=== PATIENT | male | born 1960 | race Caucasian/White ===

== ENCOUNTER → 2018-06-01 09:32 | Outpatient (CLI) | payer OTHER, SELFPAY ==
[2018-06-01 10:08] LABS: Add Manual Diff / Slide Review NO; Basophils Percent Auto 0.7 % (0-2); Hematocrit 41.3 % (41-53); Lymphocytes Percent Auto 34.2 % (25-40); Mean Corpuscular Hemoglobin 31.4 PG (26-34); Mean Corpuscular Volume 92.4 fL (80-100); Neutrophils Absolute Auto 2900 /uL (3000-5900); Neutrophils Percent Auto 51.1 % (50-75); Platelet Count 198 X10^3/uL (150-400); Red Blood Cell Count 4.47 X10^6/uL (4.5-5.9); Red Cell Distribution Width 13.1 % (11.6-14.8); White Blood Cell Count 5.6 X10^3/uL (4.5-11.0)
[2018-06-01 10:29] LABS: Appearance Urine UA CLEAR; Bilirubin Urine UA NEGATIVE (NEGATIVE); Color Urine UA YELLOW; Glucose Urine UA NEGATIVE (Normal); Ketones Urine UA NEGATIVE (NEGATIVE); Leukocyte Esterase Urine UA NEGATIVE (NEGATIVE); Nitrite Urine UA NEGATIVE (Negative); Occult Blood Urine UA NEGATIVE (Negative); Protein Urine UA NEGATIVE (Negative); Specific Gravity Urine UA 1.015 (1.000-1.035); Urobilinogen Urine UA 0.2 E.U./dL (0.2)
[2018-06-01 10:31] LABS: Alanine Aminotransferase 47 IU/L (21-72); Albumin 4.6 g/dL (3.5-5.0); Albumin Globulin Ratio 1.6 (1.0-2.8); Alkaline Phosphatase 49 U/L (38-126); Aspartate Aminotransferase 35 IU/L (17-59); BUN Creatinine Ratio 16.7 (6-22); Bilirubin Total 1.4 mg/dL (0.2-1.3); Blood Urea Nitrogen 15 mg/dL (9-20); Calcium 9.2 mg/dL (8.4-10.2); Carbon Dioxide 31 mmol/L (22-32); Chloride 104 mmol/L (98-107); Cholesterol 155 mg/dL (140-199); Estimated Glomerular Filt Rate > 60.0 mL/min (>60); Globulin 2.9 g/dL (1.7-4.1); Glucose 96 mg/dL (70-100); HDL Cholesterol 37 mg/dL (40-60); HEMOLYSIS < 15 (0-50); LDL Cholesterol Calculated 106 mg/dL (<100); Potassium 4.7 mmol/L (3.4-5.1); Sodium 143 mmol/L (137-145); Total Protein 7.5 g/dL (6.3-8.2); Triglycerides 62 mg/dL (35-150)
[2018-06-01 11:00] LABS: Prostate Specific Antigen Scrn 0.726 ng/mL (0.1-4.0)
== END ==
PROVIDERS: PCP Family Medicine; Visit Provider Family Medicine
DX: Z00.00 Encounter for general adult medical examination without abnormal findings (principal); Z13.220 Encounter for screening for lipoid disorders; Z13.29 Encounter for screening for other suspected endocrine disorder; Z12.5 Encounter for screening for malignant neoplasm of prostate
CPT/HCPCS: 36415; 80053; 80061; 81003; 84443; 85025; G0103

== ENCOUNTER 2018-09-15 14:30 | Outpatient (RCR) | payer OTHER, SELFPAY ==
--- NOTE | 2018-07-20 17:52 | PT.OIE ---
Current Diagnoses Low back pain (07/20/18) Provider Visit Care Team Role Provider Type Hollie Johnson DO Attending Provider Physician Primary Care Provider Specialty: Family Practice Address: [address] [place] [address], [id number] Email: [email or web address] Physical Therapy Initial Evaluation PT-OP-A Visit Information Start: 07/20/18 13:43 Freq: Status: Active Protocol: Document 07/20/18 15:32 EA (Rec: 07/20/18 15:53 EA [id number]) Out-Patient Physical Therapy Visit Information Visit Information Visit Type Initial Evaluation Visit Start Time 13:00 Visit Stop Time 13:45 Total Visit Minutes 45 Visit Number 1 Number of SALES ENGINEER ENGINEERED PRODUCTS Visits 0 Evaluation Information Evaluation Date 07/20/18 PT-OP-B Current Condition Start: 07/20/18 13:43 Freq: Status: Active Protocol: Document 07/20/18 15:32 EA (Rec: 07/20/18 15:53 EA [id number]) Current Condition History of Current Condition Onset Date 6 months ago Current Complaints Left localized low back pain History of Current Condition Gradual onset with no known recent injury or history of back surgery. Pt reports pain mostly intensifies when he is in static position and disappear with light to mod activities. He noted low back stiffness increased upon waking up and gradually better as day goes. No recent diagnostic imaging. Pt reports did not take any pain meds in the past and until as of today. Prior Treatments and Tests None identified No diagnostic imaging done in the past Future Testing and Treatments Planned None identified Treatment Goals Patient/Caregiver Goals Pt wants to get back to active lifestyle such as running and going to the gym regularly; reports scared to go back at this moment due to possible increase of symptoms. Prior Functional Status Baseline Function- ADL's Independent Baseline Function- Mobility Independent Baseline Function- Gait Indep with no limitation Baseline Function- Work/School No limitation at work 6 months ago Baseline Function- Recreation/Hobbies Use to run regularly and perform resistance training Current Functional Impairments (Reported) Functional Limitations- ADL's Indep with mild difficulty Functional Limitations- Mobility/Gait Indep with slight difficulty Functional Limitations- Work/School Limited to 30 mins of static position. Functional Limitations- Recreation/ Unable to get back to regular Hobbies fitness routine PT-OP-C Subjective Start: 12/12/18 13:43 Freq: Status: Active Protocol: Document 07/20/18 15:32 EA (Rec: 07/20/18 15:53 EA [id number]) OP-PT Subjective Patient Comments Patient Comments Pt reports he wants to get back to running and gym strength training if he feels his back is much better. Patient Reported Progress Worse Patient Questionnaires Oswestry Low Back Index Oswestry Score 32% Oswestry Impairment 20 to 39% Impaired (Score 20- 39) OP-PT Pain Assessment Location Left Lower Back Pain Location Details L paralumbars, QL Intensity 5 Scale Used Numeric (1 - 10) Description Tender Tightness Frequency Intermittent Pain Aggravating Factors Position Pain Alleviating Factors Exercise Home Pain Medication Use Pain Medications Used No Pain Behaviors Pain Behaviors Holding Area Wincing PT-OP-F Manual Assessment Start: 07/20/18 13:43 Freq: Status: Active Protocol: Document 07/20/18 17:10 EA (Rec: 07/25/18 11:10 EA [id number]) Manual Assessments Soft Tissue Assessment Soft Tissue Mobility Assessment Tight Left pralumbars, thoracolumbar fascia and QL. PT-OP-G Mobility & Gait Start: 07/20/18 13:43 Freq: Status: Active Protocol: Document 07/20/18 17:17 EA (Rec: 07/21/18 17:31 EA [id number]) OP Mobility Evaluation Bed Mobility Rolling Indep with mild difficulty Supine to and from Sit INdep with mild difficulty Transfers Sit to Stand indep Bed to Chair Transfers indep Stair Climbing Evaluation Devices Stair Climbing Assistive Devices None PT-OP-J Posture/Palpation/Skin Start: 07/20/18 13:43 Freq: Status: Active Protocol: Document 07/20/18 17:17 EA (Rec: 07/21/18 17:31 EA [id number]) Posture Evaluation Position Standing Head/C-Spine Posture Forward Head L-Spine Posture Flattened Shoulder Posture (L) Elevated Pelvis Posture Posterior Tilted (L) Iliac Crest Inferior Palpation Assessment Location One Palpation Location Left paralumbars,QL Palpation Findings Soft Tissue Tightness Tenderness Palpation Details Grade 2/4 tenderness to left paralumbars- QL. PT-OP-K Range of Motion Start: 07/20/18 13:43 Freq: Status: Active Protocol: Document 07/20/18 17:17 EA (Rec: 07/21/18 17:31 EA [id number]) Lumbar Spine Range of Motion Lumbar Spine Active Percentage Testing Position Standing Flexion 90 Extension 85 Rotation Left 75 Rotation Right 90 Lateral Flexion Left 75 Lateral Flexion Right 60 ROM Limitations Soft Tissue Tightness Pain PT-OP-L Special Tests Start: 07/20/18 13:43 Freq: Status: Active Protocol: Document 07/20/18 17:17 EA (Rec: 07/21/18 17:31 EA [id number]) Special Tests Lumbar Spine Special Tests Straight Leg Raise Test Results negative Prone Instability Test Test Results negative Other- 3 Test Results Negative Gaenslen's Other- 1 Test Results Positive Posterior quadrant test (Facets) PT-OP-M Strength Start: 07/20/18 13:43 Freq: Status: Active Protocol: Document 07/20/18 17:32 EA (Rec: 07/21/18 17:33 EA [id number]) Trunk Strength Trunk Manual Muscle Testing Testing Position Supine Flexion 4+ Good+ Extension 4+ Good+ Rotation Left 4- Good- Rotation Right 4- Good- Lateral Flexion Left 4 Good Lateral Flexion Right 4 Good Hip Strength Hip Manual Muscle Testing Right Reason Not Measured WFL Left Reason Not Measured WFL Knee Strength Knee Manual Muscle Testing Left Reason Not Measured WFL Ankle/Foot Strength Ankle and Foot Manual Muscle Testing Left Reason Not Measured WFL PT-OP-Q Treatments Start: 07/20/18 13:43 Freq: Status: Active Protocol: Document 07/20/18 17:14 EA (Rec: 07/21/18 17:17 EA [id number]) Manual Therapy Treatment Soft Tissue Mobilization 1 Body Location Left paralumbars, QL Mobilization Type Myofascial Release Rolling Sustained Pressure Trigger Point Release Intensity/Depth Moderate Body Position Prone PT-OP-R Modalities Start: 07/20/18 13:43 Freq: Status: Active Protocol: Document 07/20/18 17:14 EA (Rec: 07/21/18 17:17 EA [id number]) Electric Stimulation Electric Stimulation Interferential Current (IFC) Body Location Left paralumbar Duration (Minutes) 15 Intensity 16 Patient Position Prone Combined With Heat/Cold Hot Pack PT-OP-T Assessment and Plan Start: 07/20/18 13:43 Freq: Status: Active Protocol: Document 07/20/18 15:54 EA (Rec: 07/20/18 15:55 EA [id number]) Physical Therapy Assessment Rehab Potential Rehabilitation Potential Good Evaluation Complexity Number of Personal Factors/Comorbidities 0 Number of Body Systems Impaired 1-2 Clinical Presentation at Evaluation Evolving Impairments Impairments Activity Tolerance Functional Activities Pain Posture ROM Soft Tissue Mobility Goals Four Impairment PS of 5/10 upon getting up in the morning Rouge Sifter [employer] Miller Goal (LTG) Patient will reports no pain upon waking in the morning. LTG Duration 4 wks Three Impairment No HEP in place Correction Goal (LTG) Patient will exhibit independent safe home exercises program. LTG Duration 4 wks Two Impairment Sitting tolerance of less than 5 minutes Rouge Sifter [employer] Miller Goal (LTG) Patient will increase sitting tolerance to more than 30 mins with no increase in symptoms LTG Duration 4 wks One Impairment Oswestry impairment score 32% impaired Correction Goal (LTG) Patient will have Oswestry impairment score of less than 10% impaired LTG Duration 4 wks Assessment Summary Assessment Pleasant 58 y/o M patient with a referring diagnosis of lumbar strain. Today patient exhibits difficulty in bed mobility and sitting tolerance due to increased pain at lower back region. Assessment reveals tightness to left paralumbars with grade 2/4 tenderness. ROM reveals limited rotation toward left. Special tests reveal positive with facets joint dysfunction L3-L5 Opening direction. No noted signs of neurogenic claudication with most to bothe LE's appears WFL. Standing posture lateral trunk shifting towards painful side . Due to body dysfunction, patient has decreased tolerance to sitting, travelling, and lifting activities. Patient would benefit with skilled PT to address the above mentioned issues. Physical Therapy Plan Frequency and Duration Frequency of Treatment 2x/Week Duration of Treatment 8 wks Plan of Care Start Date 07/20/18 Plan of Care End Date 09/14/18 Therapeutic Interventions Therapeutic Interventions Home Exercise Program Joint Mobilizations Manual Therapy Patient/Caregiver Education Self-Care/Home Management Soft Tissue Mobilization Taping Therapeutic Exercises Modalities Cold Pack/Ice Massage Electric Stimulation Hot Packs Ultrasound Next Visit Focus/Plan Next Note Type Treatment Note Next Visit Plan Provide HEP images
--- NOTE | 2018-07-20 17:53 | PT.OPPOC ---
Current Diagnoses Low back pain (07/20/18) Provider Visit Care Team Role Provider Type Hollie Johnson DO Attending Provider Physician Primary Care Provider Specialty: Family Practice Address: [address] [place] [address], [id number] Email: [email or web address] Plan Of Care PT-OP-T Assessment and Plan Start: 07/20/18 13:43 Freq: Status: Active Protocol: Document 07/20/18 15:54 EA (Rec: 07/20/18 15:55 EA [id number]) Physical Therapy Assessment Rehab Potential Rehabilitation Potential Good Evaluation Complexity Number of Personal Factors/Comorbidities 0 Number of Body Systems Impaired 1-2 Clinical Presentation at Evaluation Evolving Impairments Impairments Activity Tolerance Functional Activities Pain Posture ROM Soft Tissue Mobility Goals Four Impairment PS of 5/10 upon getting up in the morning Usp Goal (LTG) Patient will reports no pain upon waking in the morning. LTG Duration 4 wks Three Impairment No HEP in place Usp Goal (LTG) Patient will exhibit independent safe home exercises program. LTG Duration 4 wks Two Impairment Sitting tolerance of less than 5 minutes Senior Software Qa Engineer Goal (LTG) Patient will increase sitting tolerance to more than 30 mins with no increase in symptoms LTG Duration 4 wks One Impairment Oswestry impairment score 32% impaired Usp Goal (LTG) Patient will have Oswestry impairment score of less than 10% impaired LTG Duration 4 wks Assessment Summary Assessment Pleasant 58 y/o M patient with a referring diagnosis of lumbar strain. Today patient exhibits difficulty in bed mobility and sitting tolerance due to increased pain at lower back region. Assessment reveals tightness to left paralumbars with grade 2/4 tenderness. ROM reveals limited rotation toward left. Special tests reveal positive with facets joint dysfunction L3-L5 Opening direction. No noted signs of neurogenic claudication with most to bothe LE's appears WFL. Standing posture lateral trunk shifting towards painful side . Due to body dysfunction, patient has decreased tolerance to sitting, travelling, and lifting activities. Patient would benefit with skilled PT to address the above mentioned issues. Physical Therapy Plan Frequency and Duration Frequency of Treatment 2x/Week Duration of Treatment 8 wks Plan of Care Start Date 07/20/18 Plan of Care End Date 09/14/18 Therapeutic Interventions Therapeutic Interventions Home Exercise Program Joint Mobilizations Manual Therapy Patient/Caregiver Education Self-Care/Home Management Soft Tissue Mobilization Taping Therapeutic Exercises Modalities Cold Pack/Ice Massage Electric Stimulation Hot Packs Ultrasound Next Visit Focus/Plan Next Note Type Treatment Note Next Visit Plan Provide HEP images Plan of Care Dates Plan of Care Start Date 07/20/18 Plan of Care End Date 09/14/18 Please Sign and Return: I have reviewed this Plan of Care and certify that the skilled therapy services above are required to meet the patient?s needs. Physician Signature Date Printed Name and Credentials Clinical Instructor Signature Printed Name and Credentials
--- NOTE | 2018-07-26 17:13 | PT.OTN ---
Current Diagnoses Low back pain (07/26/18) Physical Therapy Treatment Note PT-OP-A Visit Information Start: 07/20/18 13:43 Freq: Status: Active Protocol: Document 07/26/18 17:06 GGD (Rec: 07/26/18 17:13 GGD [id number]) Out-Patient Physical Therapy Visit Information Visit Information Visit Type Treatment Note Visit Start Time 16:00 Visit Stop Time 16:45 Total Visit Minutes 45 Visit Number 2 Number of PILLOWCASE TURNER Visits 1 Evaluation Information Evaluation Date 07/20/18 PT-OP-B Current Condition Start: 07/20/18 13:43 Freq: Status: Active Protocol: Document 07/20/18 15:32 EA (Rec: 07/20/18 15:53 EA [id number]) Current Condition History of Current Condition Onset Date 6 months ago Current Complaints Left localized low back pain History of Current Condition Gradual onset with no known recent injury or history of back surgery. Pt reports pain mostly intensifies when he is in static position and disappear with light to mod activities. He noted low back stiffness increased upon waking up and gradually better as day goes. No recent diagnostic imaging. Pt reports did not take any pain meds in the past and until as of today. Prior Treatments and Tests None identified No diagnostic imaging done in the past Future Testing and Treatments Planned None identified Treatment Goals Patient/Caregiver Goals Pt wants to get back to active lifetyle such as running and going to the gym regulalry; reports scared to go back at this moment due to possible increase of symptoms. Prior Functional Status Baseline Function- ADL's Independent Baseline Function- Mobility Independent Baseline Function- Gait Indep with no limitation Baseline Function- Work/School No limitation at work 6 months ago Baseline Function- Recreation/Hobbies Use to run regulalry and perform resistance training Current Functional Impairments (Reported) Functional Limitations- ADL's Indep with mild difficulty Functional Limitations- Mobility/Gait Indep with slight difficulty Functional Limitations- Work/School Limited to 30 mins of static position. Functional Limitations- Recreation/ Unable to get back to regular Hobbies fitness routine PT-OP-C Subjective Start: 07/20/18 13:43 Freq: Status: Active Protocol: Document 07/26/18 17:06 GGD (Rec: 07/26/18 17:13 GGD [id number]) OP-PT Subjective Patient Comments Patient Comments Pt states he felt better after last visit, but pain returned with sleeping. PT-OP-F Manual Assessment Start: 07/20/18 13:43 Freq: Status: Active Protocol: Document 07/20/18 17:10 EA (Rec: 07/25/18 11:10 EA [id number]) Manual Assessments Soft Tissue Assessment Soft Tissue Mobility Assessment Tight Left pralumbars, thoracolumbar fascia and QL. PT-OP-G Mobility & Gait Start: 07/20/18 13:43 Freq: Status: Active Protocol: Document 07/20/18 17:17 EA (Rec: 07/21/18 17:31 EA [id number]) OP Mobility Evaluation Bed Mobility Rolling Indep with mild difficulty Supine to and from Sit INdep with mild difficulty Transfers Sit to Stand indep Bed to Chair Transfers indep Stair Climbing Evaluation Devices Stair Climbing Assistive Devices None PT-OP-J Posture/Palpation/Skin Start: 07/20/18 13:43 Freq: Status: Active Protocol: Document 07/20/18 17:17 EA (Rec: 07/21/18 17:31 EA [id number]) Posture Evaluation Position Standing Head/C-Spine Posture Forward Head L-Spine Posture Flattened Shoulder Posture (L) Elevated Pelvis Posture Posterior Tilted (L) Iliac Crest Inferior Palpation Assessment Location One Palpation Location Left paralumbars,QL Palpation Findings Soft Tissue Tightness Tenderness Palpation Details Grade 2/4 tenderness to left paralumbars- QL. PT-OP-K Range of Motion Start: 07/20/18 13:43 Freq: Status: Active Protocol: Document 07/20/18 17:17 EA (Rec: 07/21/18 17:31 EA [id number]) Lumbar Spine Range of Motion Lumbar Spine Active Percentage Testing Position Standing Flexion 90 Extension 85 Rotation Left 75 Rotation Right 90 Lateral Flexion Left 75 Lateral Flexion Right 60 ROM Limitations Soft Tissue Tightness Pain PT-OP-L Special Tests Start: 07/20/18 13:43 Freq: Status: Active Protocol: Document 07/20/18 17:17 EA (Rec: 07/21/18 17:31 EA [id number]) Special Tests Lumbar Spine Special Tests Straight Leg Raise Test Results negative Prone Instability Test Test Results negative Other- 3 Test Results Negative Gaenslen's Other- 1 Test Results Positive Posterior quadrant test (Facets) PT-OP-M Strength Start: 07/20/18 13:43 Freq: Status: Active Protocol: Document 07/20/18 17:32 EA (Rec: 07/21/18 17:33 EA [id number]) Trunk Strength Trunk Manual Muscle Testing Testing Position Supine Flexion 4+ Good+ Extension 4+ Good+ Rotation Left 4- Good- Rotation Right 4- Good- Lateral Flexion Left 4 Good Lateral Flexion Right 4 Good Hip Strength Hip Manual Muscle Testing Right Reason Not Measured WFL Left Reason Not Measured WFL Knee Strength Knee Manual Muscle Testing Left Reason Not Measured WFL Ankle/Foot Strength Ankle and Foot Manual Muscle Testing Left Reason Not Measured WFL PT-OP-Q Treatments Start: 07/20/18 13:43 Freq: Status: Active Protocol: Document 07/26/18 17:06 GGD (Rec: 07/26/18 17:13 GGD [email or web address]) Manual Therapy Treatment Soft Tissue Mobilization 1 Body Location Left paralumbars, QL Mobilization Type Myofascial Release Rolling Sustained Pressure Trigger Point Release Intensity/Depth Moderate Body Position Prone Self-Care/Home Management Treatment Education Patient Education Body Mechanics Posture Other Education sleep positioning and desk ergonomics. PT-OP-R Modalities Start: 07/20/18 13:43 Freq: Status: Active Protocol: Document 07/26/18 17:06 GGD (Rec: 07/26/18 17:13 GGD [email or web address]) Electric Stimulation Electric Stimulation Interferential Current (IFC) Body Location Left paralumbar Duration (Minutes) 15 Intensity 16 Patient Position Prone Combined With Heat/Cold Hot Pack PT-OP-T Assessment and Plan Start: 07/20/18 13:43 Freq: Status: Active Protocol: Document 07/26/18 17:06 GGD (Rec: 07/26/18 17:13 GGD [id number]) Physical Therapy Assessment Assessment Summary Assessment Pt had good decrease C/O pain with treatment. He had good understanding of sleep position. Physical Therapy Plan Frequency and Duration Frequency of Treatment 2x/Week Duration of Treatment 8 wks Plan of Care Start Date 07/20/18 Plan of Care End Date 09/14/18 Therapeutic Interventions Therapeutic Interventions Home Exercise Program Joint Mobilizations Manual Therapy Patient/Caregiver Education Self-Care/Home Management Soft Tissue Mobilization Taping Therapeutic Exercises Modalities Cold Pack/Ice Massage Electric Stimulation Hot Packs Ultrasound Next Visit Focus/Plan Next Note Type Treatment Note Next Visit Plan Provide HEP
--- NOTE | 2018-07-29 09:45 | PT.OTN ---
Current Diagnoses Low back pain (07/29/18) Physical Therapy Treatment Note PT-OP-A Visit Information Start: 07/20/18 13:43 Freq: Status: Active Protocol: Document 07/29/18 09:39 SA (Rec: 07/29/18 09:45 SA [id number]) Out-Patient Physical Therapy Visit Information Visit Information Visit Type Treatment Note Visit Start Time 07:30 Visit Stop Time 08:15 Total Visit Minutes 45 Visit Number 3 Number of DIRECTOR INTERNAL AUDIT Visits 2 PT-OP-B Current Condition Start: 07/20/18 13:43 Freq: Status: Active Protocol: Document 07/20/18 15:32 EA (Rec: 07/20/18 15:53 EA [id number]) Current Condition History of Current Condition Onset Date 6 months ago Current Complaints Left localized low back pain History of Current Condition Gradual onset with no known recent injury or history of back surgery. Pt reports pain mostly intensifies when he is in static position and disappear with light to mod activities. He noted low back stiffness increased upon waking up and gradually better as day goes. No recent diagnostic imaging. Pt reports did not take any pain meds in the past and until as of today. Prior Treatments and Tests None identified No diagnostic imaging done in the past Future Testing and Treatments Planned None identified Treatment Goals Patient/Caregiver Goals Pt wants to get back to active lifetyle such as running and going to the gym regulalry; reports scared to go back at this moment due to possible increase of symptoms. Prior Functional Status Baseline Function- ADL's Independent Baseline Function- Mobility Independent Baseline Function- Gait Indep with no limitation Baseline Function- Work/School No limitation at work 6 months ago Baseline Function- Recreation/Hobbies Use to run regulalry and perform resistance training Current Functional Impairments (Reported) Functional Limitations- ADL's Indep with mild difficulty Functional Limitations- Mobility/Gait Indep with slight difficulty Functional Limitations- Work/School Limited to 30 mins of static position. Functional Limitations- Recreation/ Unable to get back to regular Hobbies fitness routine PT-OP-C Subjective Start: 07/20/18 13:43 Freq: Status: Active Protocol: Document 07/29/18 09:39 SA (Rec: 07/29/18 09:45 SA [id number]) OP-PT Subjective Patient Comments Patient Comments Pt reports feeling about the same but more aware of sleeping position and use of pillow between knees has been comfortable. PT-OP-F Manual Assessment Start: 07/20/18 13:43 Freq: Status: Active Protocol: Document 07/20/18 17:10 EA (Rec: 07/25/18 11:10 EA [id number]) Manual Assessments Soft Tissue Assessment Soft Tissue Mobility Assessment Tight Left pralumbars, thoracolumbar fascia and QL. PT-OP-G Mobility & Gait Start: 07/20/18 13:43 Freq: Status: Active Protocol: Document 07/20/18 17:17 EA (Rec: 07/21/18 17:31 EA [id number]) OP Mobility Evaluation Bed Mobility Rolling Indep with mild difficulty Supine to and from Sit INdep with mild difficulty Transfers Sit to Stand indep Bed to Chair Transfers indep Stair Climbing Evaluation Devices Stair Climbing Assistive Devices None PT-OP-J Posture/Palpation/Skin Start: 07/20/18 13:43 Freq: Status: Active Protocol: Document 07/20/18 17:17 EA (Rec: 07/21/18 17:31 EA [id number]) Posture Evaluation Position Standing Head/C-Spine Posture Forward Head L-Spine Posture Flattened Shoulder Posture (L) Elevated Pelvis Posture Posterior Tilted (L) Iliac Crest Inferior Palpation Assessment Location One Palpation Location Left paralumbars,QL Palpation Findings Soft Tissue Tightness Tenderness Palpation Details Grade 2/4 tenderness to left paralumbars- QL. PT-OP-K Range of Motion Start: 07/20/18 13:43 Freq: Status: Active Protocol: Document 07/20/18 17:17 EA (Rec: 07/21/18 17:31 EA [id number]) Lumbar Spine Range of Motion Lumbar Spine Active Percentage Testing Position Standing Flexion 90 Extension 85 Rotation Left 75 Rotation Right 90 Lateral Flexion Left 75 Lateral Flexion Right 60 ROM Limitations Soft Tissue Tightness Pain PT-OP-L Special Tests Start: 07/20/18 13:43 Freq: Status: Active Protocol: Document 07/20/18 17:17 EA (Rec: 07/21/18 17:31 EA [id number]) Special Tests Lumbar Spine Special Tests Straight Leg Raise Test Results negative Prone Instability Test Test Results negative Other- 3 Test Results Negative Gaenslen's Other- 1 Test Results Positive Posterior quadrant test (Facets) PT-OP-M Strength Start: 07/20/18 13:43 Freq: Status: Active Protocol: Document 07/20/18 17:32 EA (Rec: 07/21/18 17:33 EA [id number]) Trunk Strength Trunk Manual Muscle Testing Testing Position Supine Flexion 4+ Good+ Extension 4+ Good+ Rotation Left 4- Good- Rotation Right 4- Good- Lateral Flexion Left 4 Good Lateral Flexion Right 4 Good Hip Strength Hip Manual Muscle Testing Right Reason Not Measured WFL Left Reason Not Measured WFL Knee Strength Knee Manual Muscle Testing Left Reason Not Measured WFL Ankle/Foot Strength Ankle and Foot Manual Muscle Testing Left Reason Not Measured WFL PT-OP-Q Treatments Start: 07/20/18 13:43 Freq: Status: Active Protocol: Document 07/29/18 09:39 SA (Rec: 07/29/18 09:45 SA [email or web address]) Therapeutic Exercises Supine Exercises HS stretching Side bilateral Reps/Minutes 30 x 3 Piriformis stretching Side bilateral Reps/Minutes 30 x 3 Bridging with abdominal bracing Side bilateral Reps/Minutes 5 x 12 Manual Therapy Treatment Soft Tissue Mobilization 1 Body Location Left paralumbars, QL Mobilization Type Myofascial Release Rolling Sustained Pressure Trigger Point Release Intensity/Depth Moderate Body Position Sidelying Comments Noted tightness L lower lumbar paraspinals PT-OP-R Modalities Start: 07/20/18 13:43 Freq: Status: Active Protocol: Document 07/29/18 09:39 SA (Rec: 07/29/18 09:45 SA [email or web address]) Electric Stimulation Electric Stimulation Interferential Current (IFC) Body Location Left paralumbar Duration (Minutes) 15 Intensity 16 Patient Position Sidelying Combined With Heat/Cold Hot Pack PT-OP-T Assessment and Plan Start: 07/20/18 13:43 Freq: Status: Active Protocol: Document 07/29/18 09:39 SA (Rec: 07/29/18 09:45 SA [id number]) Physical Therapy Assessment Progress Towards Goals Progress Towards Goals Progressing Toward Goals Assessment Summary Assessment Pt tolerated E-stim and manual treatments well, HEP given with stretching and bridging, focus on core stabilization. Physical Therapy Plan Next Visit Focus/Plan Next Note Type Treatment Note Next Visit Plan Asess pts response to HEP and new exercises. Discussed body mechanics at work also.
--- NOTE | 2018-08-04 16:01 | PT.OTN ---
Current Diagnoses Low back pain (08/04/18) Physical Therapy Treatment Note PT-OP-A Visit Information Start: 07/20/18 13:43 Freq: Status: Active Protocol: Document 08/04/18 14:35 EA (Rec: 08/04/18 14:38 EA [id number]) Out-Patient Physical Therapy Visit Information Visit Information Visit Type Treatment Note Visit Start Time 14:30 Visit Stop Time 13:15 Total Visit Minutes 45 Visit Number 4 Number of STEAM FLATTENER Visits 2 PT-OP-B Current Condition Start: 07/20/18 13:43 Freq: Status: Active Protocol: Document 07/20/18 15:32 EA (Rec: 07/20/18 15:53 EA [id number]) Current Condition History of Current Condition Onset Date 6 months ago Current Complaints Left localized low back pain History of Current Condition Gradual onset with no known recent injury or history of back surgery. Pt reports pain mostly intensifies when he is in static position and disappear with light to mod activities. He noted low back stiffness increased upon waking up and gradually better as day goes. No recent diagnostic imaging. Pt reports did not take any pain meds in the past and until as of today. Prior Treatments and Tests None identified No diagnostic imaging done in the past Future Testing and Treatments Planned None identified Treatment Goals Patient/Caregiver Goals Pt wants to get back to active lifetyle such as running and going to the gym regulalry; reports scared to go back at this moment due to possible increase of symptoms. Prior Functional Status Baseline Function- ADL's Independent Baseline Function- Mobility Independent Baseline Function- Gait Indep with no limitation Baseline Function- Work/School No limitation at work 6 months ago Baseline Function- Recreation/Hobbies Use to run regulalry and perform resistance training Current Functional Impairments (Reported) Functional Limitations- ADL's Indep with mild difficulty Functional Limitations- Mobility/Gait Indep with slight difficulty Functional Limitations- Work/School Limited to 30 mins of static position. Functional Limitations- Recreation/ Unable to get back to regular Hobbies fitness routine PT-OP-C Subjective Start: 07/20/18 13:43 Freq: Status: Active Protocol: Document 08/04/18 15:11 EA (Rec: 08/04/18 15:13 EA [id number]) OP-PT Subjective Patient Comments Patient Comments Pt reports low back is getting much better; states he has been compliant with HEP. Patient Reported Progress Improving PT-OP-F Manual Assessment Start: 07/20/18 13:43 Freq: Status: Active Protocol: Document 07/20/18 17:10 EA (Rec: 07/25/18 11:10 EA [id number]) Manual Assessments Soft Tissue Assessment Soft Tissue Mobility Assessment Tight Left pralumbars, thoracolumbar fascia and QL. PT-OP-G Mobility & Gait Start: 07/20/18 13:43 Freq: Status: Active Protocol: Document 07/20/18 17:17 EA (Rec: 07/21/18 17:31 EA [id number]) OP Mobility Evaluation Bed Mobility Rolling Indep with mild difficulty Supine to and from Sit INdep with mild difficulty Transfers Sit to Stand indep Bed to Chair Transfers indep Stair Climbing Evaluation Devices Stair Climbing Assistive Devices None PT-OP-J Posture/Palpation/Skin Start: 07/20/18 13:43 Freq: Status: Active Protocol: Document 07/20/18 17:17 EA (Rec: 07/21/18 17:31 EA [id number]) Posture Evaluation Position Standing Head/C-Spine Posture Forward Head L-Spine Posture Flattened Shoulder Posture (L) Elevated Pelvis Posture Posterior Tilted (L) Iliac Crest Inferior Palpation Assessment Location One Palpation Location Left paralumbars,QL Palpation Findings Soft Tissue Tightness Tenderness Palpation Details Grade 2/4 tenderness to left paralumbars- QL. PT-OP-K Range of Motion Start: 07/20/18 13:43 Freq: Status: Active Protocol: Document 07/20/18 17:17 EA (Rec: 07/21/18 17:31 EA [id number]) Lumbar Spine Range of Motion Lumbar Spine Active Percentage Testing Position Standing Flexion 90 Extension 85 Rotation Left 75 Rotation Right 90 Lateral Flexion Left 75 Lateral Flexion Right 60 ROM Limitations Soft Tissue Tightness Pain PT-OP-L Special Tests Start: 07/20/18 13:43 Freq: Status: Active Protocol: Document 07/20/18 17:17 EA (Rec: 07/21/18 17:31 EA [id number]) Special Tests Lumbar Spine Special Tests Straight Leg Raise Test Results negative Prone Instability Test Test Results negative Other- 3 Test Results Negative Gaenslen's Other- 1 Test Results Positive Posterior quadrant test (Facets) PT-OP-M Strength Start: 07/20/18 13:43 Freq: Status: Active Protocol: Document 07/20/18 17:32 EA (Rec: 07/21/18 17:33 EA [id number]) Trunk Strength Trunk Manual Muscle Testing Testing Position Supine Flexion 4+ Good+ Extension 4+ Good+ Rotation Left 4- Good- Rotation Right 4- Good- Lateral Flexion Left 4 Good Lateral Flexion Right 4 Good Hip Strength Hip Manual Muscle Testing Right Reason Not Measured WFL Left Reason Not Measured WFL Knee Strength Knee Manual Muscle Testing Left Reason Not Measured WFL Ankle/Foot Strength Ankle and Foot Manual Muscle Testing Left Reason Not Measured WFL PT-OP-Q Treatments Start: 07/20/18 13:43 Freq: Status: Active Protocol: Document 08/04/18 14:35 EA (Rec: 08/04/18 14:38 EA [id number]) Cardio Equipment Recumbent Bicycle Duration (Minutes) 5 Resistance 4 Therapeutic Exercises Supine Exercises HS stretching Side bilateral Reps/Minutes 30 x 3 Piriformis stretching Side bilateral Reps/Minutes 30 x 3 Bridging with abdominal bracing Side bilateral Reps/Minutes 5 x 12 Manual Therapy Treatment Soft Tissue Mobilization 1 Body Location Left paralumbars, QL Mobilization Type Myofascial Release Rolling Sustained Pressure Trigger Point Release Intensity/Depth Moderate Body Position Sidelying Comments Noted tightness L lower lumbar paraspinals PT-OP-R Modalities Start: 07/20/18 13:43 Freq: Status: Active Protocol: Document 08/04/18 14:35 EA (Rec: 08/04/18 14:38 EA [id number]) Electric Stimulation Electric Stimulation Interferential Current (IFC) Body Location Left paralumbar Duration (Minutes) 15 Intensity 16 Patient Position Sidelying Combined With Heat/Cold Hot Pack PT-OP-T Assessment and Plan Start: 07/20/18 13:43 Freq: Status: Active Protocol: Document 08/04/18 15:11 EA (Rec: 08/04/18 15:13 EA [id number]) Physical Therapy Assessment Assessment Summary Assessment Noted decreased tenderness to left low back with no noted signs of discomfort on his mobility. Patient is progressing well at this time. Cont with current plan. Physical Therapy Plan Next Visit Focus/Plan Next Note Type Treatment Note Next Visit Plan Standing core exercises
--- NOTE | 2018-08-10 16:41 | PT.OTN ---
Current Diagnoses Low back pain (08/10/18) Physical Therapy Treatment Note PT-OP-A Visit Information Start: 07/20/18 13:43 Freq: Status: Active Protocol: Document 08/10/18 15:22 EA (Rec: 08/10/18 15:25 EA [id number]) Out-Patient Physical Therapy Visit Information Visit Information Visit Type Treatment Note Visit Start Time 15:15 Visit Stop Time 16:00 Total Visit Minutes 45 Visit Number 5 Number of ROVING WINDER Visits 2 PT-OP-B Current Condition Start: 07/20/18 13:43 Freq: Status: Active Protocol: Document 07/20/18 15:32 EA (Rec: 07/20/18 15:53 EA [id number]) Current Condition History of Current Condition Onset Date 6 months ago Current Complaints Left localized low back pain History of Current Condition Gradual onset with no known recent injury or history of back surgery. Pt reports pain mostly intensifies when he is in static position and disappear with light to mod activities. He noted low back stiffness increased upon waking up and gradually better as day goes. No recent diagnostic imaging. Pt reports did not take any pain meds in the past and until as of today. Prior Treatments and Tests None identified No diagnostic imaging done in the past Future Testing and Treatments Planned None identified Treatment Goals Patient/Caregiver Goals Pt wants to get back to active lifetyle such as running and going to the gym regulalry; reports scared to go back at this moment due to possible increase of symptoms. Prior Functional Status Baseline Function- ADL's Independent Baseline Function- Mobility Independent Baseline Function- Gait Indep with no limitation Baseline Function- Work/School No limitation at work 6 months ago Baseline Function- Recreation/Hobbies Use to run regulalry and perform resistance training Current Functional Impairments (Reported) Functional Limitations- ADL's Indep with mild difficulty Functional Limitations- Mobility/Gait Indep with slight difficulty Functional Limitations- Work/School Limited to 30 mins of static position. Functional Limitations- Recreation/ Unable to get back to regular Hobbies fitness routine PT-OP-C Subjective Start: 07/20/18 13:43 Freq: Status: Active Protocol: Document 08/10/18 15:22 EA (Rec: 08/10/18 15:25 EA [id number]) OP-PT Subjective Patient Comments Patient Comments Pt reports did skii 3 days ago and low pain did not increased symptoms; states low back is improving. Patient Reported Progress Improving PT-OP-F Manual Assessment Start: 07/20/18 13:43 Freq: Status: Active Protocol: Document 07/20/18 17:10 EA (Rec: 07/25/18 11:10 EA [id number]) Manual Assessments Soft Tissue Assessment Soft Tissue Mobility Assessment Tight Left pralumbars, thoracolumbar fascia and QL. PT-OP-G Mobility & Gait Start: 07/20/18 13:43 Freq: Status: Active Protocol: Document 07/20/18 17:17 EA (Rec: 07/21/18 17:31 EA [id number]) OP Mobility Evaluation Bed Mobility Rolling Indep with mild difficulty Supine to and from Sit INdep with mild difficulty Transfers Sit to Stand indep Bed to Chair Transfers indep Stair Climbing Evaluation Devices Stair Climbing Assistive Devices None PT-OP-J Posture/Palpation/Skin Start: 07/20/18 13:43 Freq: Status: Active Protocol: Document 07/20/18 17:17 EA (Rec: 07/21/18 17:31 EA [id number]) Posture Evaluation Position Standing Head/C-Spine Posture Forward Head L-Spine Posture Flattened Shoulder Posture (L) Elevated Pelvis Posture Posterior Tilted (L) Iliac Crest Inferior Palpation Assessment Location One Palpation Location Left paralumbars,QL Palpation Findings Soft Tissue Tightness Tenderness Palpation Details Grade 2/4 tenderness to left paralumbars- QL. PT-OP-K Range of Motion Start: 07/20/18 13:43 Freq: Status: Active Protocol: Document 07/20/18 17:17 EA (Rec: 07/21/18 17:31 EA [id number]) Lumbar Spine Range of Motion Lumbar Spine Active Percentage Testing Position Standing Flexion 90 Extension 85 Rotation Left 75 Rotation Right 90 Lateral Flexion Left 75 Lateral Flexion Right 60 ROM Limitations Soft Tissue Tightness Pain PT-OP-L Special Tests Start: 07/20/18 13:43 Freq: Status: Active Protocol: Document 07/20/18 17:17 EA (Rec: 07/21/18 17:31 EA [id number]) Special Tests Lumbar Spine Special Tests Straight Leg Raise Test Results negative Prone Instability Test Test Results negative Other- 3 Test Results Negative Gaenslen's Other- 1 Test Results Positive Posterior quadrant test (Facets) PT-OP-M Strength Start: 07/20/18 13:43 Freq: Status: Active Protocol: Document 07/20/18 17:32 EA (Rec: 07/21/18 17:33 EA [id number]) Trunk Strength Trunk Manual Muscle Testing Testing Position Supine Flexion 4+ Good+ Extension 4+ Good+ Rotation Left 4- Good- Rotation Right 4- Good- Lateral Flexion Left 4 Good Lateral Flexion Right 4 Good Hip Strength Hip Manual Muscle Testing Right Reason Not Measured WFL Left Reason Not Measured WFL Knee Strength Knee Manual Muscle Testing Left Reason Not Measured WFL Ankle/Foot Strength Ankle and Foot Manual Muscle Testing Left Reason Not Measured WFL PT-OP-Q Treatments Start: 07/20/18 13:43 Freq: Status: Active Protocol: Document 08/10/18 15:22 EA (Rec: 08/10/18 15:25 EA [id number]) Cardio Equipment Elliptical Duration (Minutes) 5 Resistance 5 Therapeutic Exercises Supine Exercises HS stretching Side bilateral Reps/Minutes 30 x 3 Piriformis stretching Side bilateral Reps/Minutes 30 x 3 Bridging with abdominal bracing Side bilateral Reps/Minutes 5 x 12 Manual Therapy Treatment Soft Tissue Mobilization 1 Body Location Left paralumbars, QL Mobilization Type Myofascial Release Rolling Sustained Pressure Trigger Point Release Intensity/Depth Moderate Body Position Sidelying Comments Noted tightness L lower lumbar paraspinals PT-OP-R Modalities Start: 07/20/18 13:43 Freq: Status: Active Protocol: Document 08/10/18 15:22 EA (Rec: 08/10/18 15:25 EA [id number]) Electric Stimulation Electric Stimulation Interferential Current (IFC) Body Location Left paralumbar Duration (Minutes) 15 Intensity 16 Patient Position Sidelying Combined With Heat/Cold Hot Pack PT-OP-T Assessment and Plan Start: 07/20/18 13:43 Freq: Status: Active Protocol: Document 08/10/18 15:52 EA (Rec: 08/10/18 15:53 EA [id number]) Physical Therapy Assessment Assessment Summary Assessment Tolerated treatment well with no discomfort during therex. Patient is progressing well. Physical Therapy Plan Next Visit Focus/Plan Next Note Type Treatment Note Next Visit Plan Advanced to standing core exercises.
--- NOTE | 2018-08-12 15:08 | PT.OTN ---
Current Diagnoses Low back pain (08/12/18) Physical Therapy Treatment Note PT-OP-A Visit Information Start: 07/20/18 13:43 Freq: Status: Active Protocol: Document 08/12/18 14:35 DCW (Rec: 08/12/18 15:08 DCW [id number]) Out-Patient Physical Therapy Visit Information Visit Information Visit Type Treatment Note Visit Start Time 14:35 Visit Stop Time 15:20 Total Visit Minutes 45 Visit Number 6 Number of BOAT HOIST OPERATOR HELPER Visits 0 PT-OP-B Current Condition Start: 07/20/18 13:43 Freq: Status: Active Protocol: Document 07/20/18 15:32 EA (Rec: 07/20/18 15:53 EA [id number]) Current Condition History of Current Condition Onset Date 6 months ago Current Complaints Left localized low back pain History of Current Condition Gradual onset with no known recent injury or history of back surgery. Pt reports pain mostly intensifies when he is in static position and disappear with light to mod activities. He noted low back stiffness increased upon waking up and gradually better as day goes. No recent diagnostic imaging. Pt reports did not take any pain meds in the past and until as of today. Prior Treatments and Tests None identified No diagnostic imaging done in the past Future Testing and Treatments Planned None identified Treatment Goals Patient/Caregiver Goals Pt wants to get back to active lifetyle such as running and going to the gym regulalry; reports scared to go back at this moment due to possible increase of symptoms. Prior Functional Status Baseline Function- ADL's Independent Baseline Function- Mobility Independent Baseline Function- Gait Indep with no limitation Baseline Function- Work/School No limitation at work 6 months ago Baseline Function- Recreation/Hobbies Use to run regulalry and perform resistance training Current Functional Impairments (Reported) Functional Limitations- ADL's Indep with mild difficulty Functional Limitations- Mobility/Gait Indep with slight difficulty Functional Limitations- Work/School Limited to 30 mins of static position. Functional Limitations- Recreation/ Unable to get back to regular Hobbies fitness routine PT-OP-C Subjective Start: 07/20/18 13:43 Freq: Status: Active Protocol: Document 08/12/18 14:35 DCW (Rec: 08/12/18 15:08 DCW [id number]) OP-PT Subjective Patient Comments Patient Comments Pt reports that he still has some back pain, but it is much less than it was a few weeks ago. PT-OP-F Manual Assessment Start: 07/20/18 13:43 Freq: Status: Active Protocol: Document 07/20/18 17:10 EA (Rec: 07/25/18 11:10 EA [id number]) Manual Assessments Soft Tissue Assessment Soft Tissue Mobility Assessment Tight Left pralumbars, thoracolumbar fascia and QL. PT-OP-G Mobility & Gait Start: 07/20/18 13:43 Freq: Status: Active Protocol: Document 07/20/18 17:17 EA (Rec: 07/21/18 17:31 EA [id number]) OP Mobility Evaluation Bed Mobility Rolling Indep with mild difficulty Supine to and from Sit INdep with mild difficulty Transfers Sit to Stand indep Bed to Chair Transfers indep Stair Climbing Evaluation Devices Stair Climbing Assistive Devices None PT-OP-J Posture/Palpation/Skin Start: 07/20/18 13:43 Freq: Status: Active Protocol: Document 07/20/18 17:17 EA (Rec: 07/21/18 17:31 EA [id number]) Posture Evaluation Position Standing Head/C-Spine Posture Forward Head L-Spine Posture Flattened Shoulder Posture (L) Elevated Pelvis Posture Posterior Tilted (L) Iliac Crest Inferior Palpation Assessment Location One Palpation Location Left paralumbars,QL Palpation Findings Soft Tissue Tightness Tenderness Palpation Details Grade 2/4 tenderness to left paralumbars- QL. PT-OP-K Range of Motion Start: 07/20/18 13:43 Freq: Status: Active Protocol: Document 07/20/18 17:17 EA (Rec: 07/21/18 17:31 EA [id number]) Lumbar Spine Range of Motion Lumbar Spine Active Percentage Testing Position Standing Flexion 90 Extension 85 Rotation Left 75 Rotation Right 90 Lateral Flexion Left 75 Lateral Flexion Right 60 ROM Limitations Soft Tissue Tightness Pain PT-OP-L Special Tests Start: 07/20/18 13:43 Freq: Status: Active Protocol: Document 07/20/18 17:17 EA (Rec: 07/21/18 17:31 EA [id number]) Special Tests Lumbar Spine Special Tests Straight Leg Raise Test Results negative Prone Instability Test Test Results negative Other- 3 Test Results Negative Gaenslen's Other- 1 Test Results Positive Posterior quadrant test (Facets) PT-OP-M Strength Start: 07/20/18 13:43 Freq: Status: Active Protocol: Document 07/20/18 17:32 EA (Rec: 07/21/18 17:33 EA [id number]) Trunk Strength Trunk Manual Muscle Testing Testing Position Supine Flexion 4+ Good+ Extension 4+ Good+ Rotation Left 4- Good- Rotation Right 4- Good- Lateral Flexion Left 4 Good Lateral Flexion Right 4 Good Hip Strength Hip Manual Muscle Testing Right Reason Not Measured WFL Left Reason Not Measured WFL Knee Strength Knee Manual Muscle Testing Left Reason Not Measured WFL Ankle/Foot Strength Ankle and Foot Manual Muscle Testing Left Reason Not Measured WFL PT-OP-Q Treatments Start: 07/20/18 13:43 Freq: Status: Active Protocol: Document 08/12/18 14:35 DCW (Rec: 08/12/18 15:08 DCW [id number]) Cardio Equipment Elliptical Duration (Minutes) 5 Resistance 5 Therapeutic Exercises Supine Exercises Bridging /c marching Side bilateral Reps/Minutes 25 x2 HS stretching Side bilateral Reps/Minutes 30 x 3 Piriformis stretching Side bilateral Reps/Minutes 30 x 3 Bridging with abdominal bracing Side bilateral Reps/Minutes 5 x 12 Manual Therapy Treatment Soft Tissue Mobilization 1 Body Location Left paralumbars, QL Mobilization Type Myofascial Release Rolling Sustained Pressure Trigger Point Release Intensity/Depth Moderate Body Position Prone Comments Noted tightness L lower lumbar paraspinals PT-OP-R Modalities Start: 07/20/18 13:43 Freq: Status: Active Protocol: Document 08/12/18 14:35 DCW (Rec: 08/12/18 15:08 DCW [id number]) Electric Stimulation Electric Stimulation Interferential Current (IFC) Body Location Left paralumbar Duration (Minutes) 15 Intensity 16 Patient Position Sidelying Combined With Heat/Cold Hot Pack PT-OP-T Assessment and Plan Start: 07/20/18 13:43 Freq: Status: Active Protocol: Document 08/12/18 14:35 DCW (Rec: 08/12/18 15:08 DCW [id number]) Physical Therapy Assessment Assessment Summary Assessment Pt continues to tolerate treatment well, reporting improvement in overall pain levels and mobility. Physical Therapy Plan Next Visit Focus/Plan Next Note Type Treatment Note Next Visit Plan Advanced to standing core exercises.
--- NOTE | 2018-08-16 17:13 | PT.OTN ---
Current Diagnoses Low back pain (08/16/18) Physical Therapy Treatment Note PT-OP-A Visit Information Start: 07/20/18 13:43 Freq: Status: Active Protocol: Document 08/16/18 16:49 EA (Rec: 08/16/18 16:51 EA [id number]) Out-Patient Physical Therapy Visit Information Visit Information Visit Type Treatment Note Visit Start Time 15:15 Visit Stop Time 16:00 Total Visit Minutes 45 Visit Number 7 Number of INVESTMENT ACCOUNTING CLERK Visits 2 PT-OP-B Current Condition Start: 07/20/18 13:43 Freq: Status: Active Protocol: Document 07/20/18 15:32 EA (Rec: 07/20/18 15:53 EA [id number]) Current Condition History of Current Condition Onset Date 6 months ago Current Complaints Left localized low back pain History of Current Condition Gradual onset with no known recent injury or history of back surgery. Pt reports pain mostly intensifies when he is in static position and disappear with light to mod activities. He noted low back stiffness increased upon waking up and gradually better as day goes. No recent diagnostic imaging. Pt reports did not take any pain meds in the past and until as of today. Prior Treatments and Tests None identified No diagnostic imaging done in the past Future Testing and Treatments Planned None identified Treatment Goals Patient/Caregiver Goals Pt wants to get back to active lifetyle such as running and going to the gym regulalry; reports scared to go back at this moment due to possible increase of symptoms. Prior Functional Status Baseline Function- ADL's Independent Baseline Function- Mobility Independent Baseline Function- Gait Indep with no limitation Baseline Function- Work/School No limitation at work 6 months ago Baseline Function- Recreation/Hobbies Use to run regulalry and perform resistance training Current Functional Impairments (Reported) Functional Limitations- ADL's Indep with mild difficulty Functional Limitations- Mobility/Gait Indep with slight difficulty Functional Limitations- Work/School Limited to 30 mins of static position. Functional Limitations- Recreation/ Unable to get back to regular Hobbies fitness routine PT-OP-C Subjective Start: 07/20/18 13:43 Freq: Status: Active Protocol: Document 08/16/18 16:49 EA (Rec: 08/16/18 16:51 EA [id number]) OP-PT Subjective Patient Comments Patient Comments Pt reports low back is getting better and mostly hurts only upon getting up from the chair . PT-OP-F Manual Assessment Start: 07/20/18 13:43 Freq: Status: Active Protocol: Document 07/20/18 17:10 EA (Rec: 07/25/18 11:10 EA [id number]) Manual Assessments Soft Tissue Assessment Soft Tissue Mobility Assessment Tight Left pralumbars, thoracolumbar fascia and QL. PT-OP-G Mobility & Gait Start: 07/20/18 13:43 Freq: Status: Active Protocol: Document 07/20/18 17:17 EA (Rec: 07/21/18 17:31 EA [id number]) OP Mobility Evaluation Bed Mobility Rolling Indep with mild difficulty Supine to and from Sit INdep with mild difficulty Transfers Sit to Stand indep Bed to Chair Transfers indep Stair Climbing Evaluation Devices Stair Climbing Assistive Devices None PT-OP-J Posture/Palpation/Skin Start: 07/20/18 13:43 Freq: Status: Active Protocol: Document 07/20/18 17:17 EA (Rec: 07/21/18 17:31 EA [id number]) Posture Evaluation Position Standing Head/C-Spine Posture Forward Head L-Spine Posture Flattened Shoulder Posture (L) Elevated Pelvis Posture Posterior Tilted (L) Iliac Crest Inferior Palpation Assessment Location One Palpation Location Left paralumbars,QL Palpation Findings Soft Tissue Tightness Tenderness Palpation Details Grade 2/4 tenderness to left paralumbars- QL. PT-OP-K Range of Motion Start: 07/20/18 13:43 Freq: Status: Active Protocol: Document 07/20/18 17:17 EA (Rec: 07/21/18 17:31 EA [id number]) Lumbar Spine Range of Motion Lumbar Spine Active Percentage Testing Position Standing Flexion 90 Extension 85 Rotation Left 75 Rotation Right 90 Lateral Flexion Left 75 Lateral Flexion Right 60 ROM Limitations Soft Tissue Tightness Pain PT-OP-L Special Tests Start: 07/20/18 13:43 Freq: Status: Active Protocol: Document 07/20/18 17:17 EA (Rec: 07/21/18 17:31 EA [id number]) Special Tests Lumbar Spine Special Tests Straight Leg Raise Test Results negative Prone Instability Test Test Results negative Other- 3 Test Results Negative Gaenslen's Other- 1 Test Results Positive Posterior quadrant test (Facets) PT-OP-M Strength Start: 07/20/18 13:43 Freq: Status: Active Protocol: Document 07/20/18 17:32 EA (Rec: 07/21/18 17:33 EA [id number]) Trunk Strength Trunk Manual Muscle Testing Testing Position Supine Flexion 4+ Good+ Extension 4+ Good+ Rotation Left 4- Good- Rotation Right 4- Good- Lateral Flexion Left 4 Good Lateral Flexion Right 4 Good Hip Strength Hip Manual Muscle Testing Right Reason Not Measured WFL Left Reason Not Measured WFL Knee Strength Knee Manual Muscle Testing Left Reason Not Measured WFL Ankle/Foot Strength Ankle and Foot Manual Muscle Testing Left Reason Not Measured WFL PT-OP-Q Treatments Start: 07/20/18 13:43 Freq: Status: Active Protocol: Document 08/16/18 16:49 EA (Rec: 08/16/18 16:51 EA [id number]) Cardio Equipment Elliptical Duration (Minutes) 5 Resistance 5 Therapeutic Exercises Supine Exercises Bridging /c marching Side bilateral Reps/Minutes 25 x2 HS stretching Side bilateral Reps/Minutes 30 x 3 Piriformis stretching Side bilateral Reps/Minutes 30 x 3 Bridging with abdominal bracing Side bilateral Reps/Minutes 5 x 12 Standing Exercises 1 Standing Exercise Name Cable sit to stand row Resistance 30 lbs Reps/Minutes x 10 reps Manual Therapy Treatment Soft Tissue Mobilization 1 Body Location Left paralumbars, QL Mobilization Type Myofascial Release Rolling Sustained Pressure Trigger Point Release Intensity/Depth Moderate Body Position Prone Comments Noted tightness L lower lumbar paraspinals PT-OP-R Modalities Start: 07/20/18 13:43 Freq: Status: Active Protocol: Document 08/16/18 16:49 EA (Rec: 08/16/18 16:51 EA [id number]) Electric Stimulation Electric Stimulation Interferential Current (IFC) Body Location Left paralumbar Duration (Minutes) 15 Intensity 16 Patient Position Sidelying Combined With Heat/Cold Hot Pack PT-OP-T Assessment and Plan Start: 07/20/18 13:43 Freq: Status: Active Protocol: Document 08/16/18 16:49 EA (Rec: 08/16/18 16:51 EA [id number]) Physical Therapy Assessment Assessment Summary Assessment Tolerated treatment well. patient is progressing. Physical Therapy Plan Next Visit Focus/Plan Next Note Type Treatment Note Next Visit Plan Advanced to standing core exercises.
--- NOTE | 2018-08-18 16:44 | PT.OTN ---
Current Diagnoses Low back pain (08/18/18) Physical Therapy Treatment Note PT-OP-A Visit Information Start: 07/20/18 13:43 Freq: Status: Active Protocol: Document 08/18/18 16:00 DCW (Rec: 08/18/18 16:43 DCW [id number]) Out-Patient Physical Therapy Visit Information Visit Information Visit Type Treatment Note Visit Start Time 16:00 Visit Stop Time 16:55 Total Visit Minutes 55 Visit Number 8 Number of NEUROLOGY SPECIALIST Visits 0 PT-OP-B Current Condition Start: 07/20/18 13:43 Freq: Status: Active Protocol: Document 07/20/18 15:32 EA (Rec: 07/20/18 15:53 EA [id number]) Current Condition History of Current Condition Onset Date 6 months ago Current Complaints Left localized low back pain History of Current Condition Gradual onset with no known recent injury or history of back surgery. Pt reports pain mostly intensifies when he is in static position and disappear with light to mod activities. He noted low back stiffness increased upon waking up and gradually better as day goes. No recent diagnostic imaging. Pt reports did not take any pain meds in the past and until as of today. Prior Treatments and Tests None identified No diagnostic imaging done in the past Future Testing and Treatments Planned None identified Treatment Goals Patient/Caregiver Goals Pt wants to get back to active lifetyle such as running and going to the gym regulalry; reports scared to go back at this moment due to possible increase of symptoms. Prior Functional Status Baseline Function- ADL's Independent Baseline Function- Mobility Independent Baseline Function- Gait Indep with no limitation Baseline Function- Work/School No limitation at work 6 months ago Baseline Function- Recreation/Hobbies Use to run regulalry and perform resistance training Current Functional Impairments (Reported) Functional Limitations- ADL's Indep with mild difficulty Functional Limitations- Mobility/Gait Indep with slight difficulty Functional Limitations- Work/School Limited to 30 mins of static position. Functional Limitations- Recreation/ Unable to get back to regular Hobbies fitness routine PT-OP-C Subjective Start: 07/20/18 13:43 Freq: Status: Active Protocol: Document 08/18/18 16:00 DCW (Rec: 08/18/18 16:43 DCW [id number]) OP-PT Subjective Patient Comments Patient Comments I'm getting better. every visit seems to get me just a little closer to getting back to normal. PT-OP-F Manual Assessment Start: 07/20/18 13:43 Freq: Status: Active Protocol: Document 07/20/18 17:10 EA (Rec: 07/25/18 11:10 EA [id number]) Manual Assessments Soft Tissue Assessment Soft Tissue Mobility Assessment Tight Left pralumbars, thoracolumbar fascia and QL. PT-OP-G Mobility & Gait Start: 07/20/18 13:43 Freq: Status: Active Protocol: Document 07/20/18 17:17 EA (Rec: 07/21/18 17:31 EA [id number]) OP Mobility Evaluation Bed Mobility Rolling Indep with mild difficulty Supine to and from Sit INdep with mild difficulty Transfers Sit to Stand indep Bed to Chair Transfers indep Stair Climbing Evaluation Devices Stair Climbing Assistive Devices None PT-OP-J Posture/Palpation/Skin Start: 07/20/18 13:43 Freq: Status: Active Protocol: Document 07/20/18 17:17 EA (Rec: 07/21/18 17:31 EA [id number]) Posture Evaluation Position Standing Head/C-Spine Posture Forward Head L-Spine Posture Flattened Shoulder Posture (L) Elevated Pelvis Posture Posterior Tilted (L) Iliac Crest Inferior Palpation Assessment Location One Palpation Location Left paralumbars,QL Palpation Findings Soft Tissue Tightness Tenderness Palpation Details Grade 2/4 tenderness to left paralumbars- QL. PT-OP-K Range of Motion Start: 07/20/18 13:43 Freq: Status: Active Protocol: Document 07/20/18 17:17 EA (Rec: 07/21/18 17:31 EA [id number]) Lumbar Spine Range of Motion Lumbar Spine Active Percentage Testing Position Standing Flexion 90 Extension 85 Rotation Left 75 Rotation Right 90 Lateral Flexion Left 75 Lateral Flexion Right 60 ROM Limitations Soft Tissue Tightness Pain PT-OP-L Special Tests Start: 07/20/18 13:43 Freq: Status: Active Protocol: Document 07/20/18 17:17 EA (Rec: 07/21/18 17:31 EA [id number]) Special Tests Lumbar Spine Special Tests Straight Leg Raise Test Results negative Prone Instability Test Test Results negative Other- 3 Test Results Negative Gaenslen's Other- 1 Test Results Positive Posterior quadrant test (Facets) PT-OP-M Strength Start: 07/20/18 13:43 Freq: Status: Active Protocol: Document 07/20/18 17:32 EA (Rec: 07/21/18 17:33 EA [id number]) Trunk Strength Trunk Manual Muscle Testing Testing Position Supine Flexion 4+ Good+ Extension 4+ Good+ Rotation Left 4- Good- Rotation Right 4- Good- Lateral Flexion Left 4 Good Lateral Flexion Right 4 Good Hip Strength Hip Manual Muscle Testing Right Reason Not Measured WFL Left Reason Not Measured WFL Knee Strength Knee Manual Muscle Testing Left Reason Not Measured WFL Ankle/Foot Strength Ankle and Foot Manual Muscle Testing Left Reason Not Measured WFL PT-OP-Q Treatments Start: 07/20/18 13:43 Freq: Status: Active Protocol: Document 08/18/18 16:00 DCW (Rec: 08/18/18 16:43 DCW [id number]) Cardio Equipment Elliptical Duration (Minutes) 5 Resistance 5 Gym Equipment Shuttle Recovery Unilateral Squats Resistance 62# Shuttle Recovery Platform Stable Bilateral Squats Resistance 112# Shuttle Recovery Platform Stable Shuttle Balance Red Comments Wide THERESA, Staggered Stance, Lateral Weight Shift Manual Therapy Treatment Soft Tissue Mobilization 1 Body Location Left paralumbars, QL Mobilization Type Myofascial Release Rolling Sustained Pressure Trigger Point Release Intensity/Depth Moderate Body Position Prone Comments Noted tightness L lower lumbar paraspinals PT-OP-R Modalities Start: 07/20/18 13:43 Freq: Status: Active Protocol: Document 08/18/18 16:00 DCW (Rec: 08/18/18 16:43 DCW [id number]) Electric Stimulation Electric Stimulation Interferential Current (IFC) Body Location Left paralumbar Duration (Minutes) 15 Intensity 17 Patient Position Prone Combined With Heat/Cold Hot Pack PT-OP-T Assessment and Plan Start: 07/20/18 13:43 Freq: Status: Active Protocol: Document 08/18/18 16:00 DCW (Rec: 08/18/18 16:43 DCW [id number]) Physical Therapy Assessment Assessment Summary Assessment Pt did well with addition of new activities, had some difficulty with core control while on Shuttle Balance. Physical Therapy Plan Next Visit Focus/Plan Next Note Type Treatment Note Next Visit Plan Advance standing core exercises.
--- NOTE | 2018-08-23 16:07 | PT.OTN ---
Current Diagnoses Low back pain (08/23/18) Physical Therapy Treatment Note PT-OP-A Visit Information Start: 07/20/18 13:43 Freq: Status: Active Protocol: Document 08/23/18 13:35 EA (Rec: 08/23/18 13:39 EA [id number]) Out-Patient Physical Therapy Visit Information Visit Information Visit Start Time 13:45 Visit Stop Time 14:40 Total Visit Minutes 55 Visit Number 9 PT-OP-B Current Condition Start: 07/20/18 13:43 Freq: Status: Active Protocol: Document 07/20/18 15:32 EA (Rec: 07/20/18 15:53 EA [id number]) Current Condition History of Current Condition Onset Date 6 months ago Current Complaints Left localized low back pain History of Current Condition Gradual onset with no known recent injury or history of back surgery. Pt reports pain mostly intensifies when he is in static position and disappear with light to mod activities. He noted low back stiffness increased upon waking up and gradually better as day goes. No recent diagnostic imaging. Pt reports did not take any pain meds in the past and until as of today. Prior Treatments and Tests None identified No diagnostic imaging done in the past Future Testing and Treatments Planned None identified Treatment Goals Patient/Caregiver Goals Pt wants to get back to active lifetyle such as running and going to the gym regulalry; reports scared to go back at this moment due to possible increase of symptoms. Prior Functional Status Baseline Function- ADL's Independent Baseline Function- Mobility Independent Baseline Function- Gait Indep with no limitation Baseline Function- Work/School No limitation at work 6 months ago Baseline Function- Recreation/Hobbies Use to run regulalry and perform resistance training Current Functional Impairments (Reported) Functional Limitations- ADL's Indep with mild difficulty Functional Limitations- Mobility/Gait Indep with slight difficulty Functional Limitations- Work/School Limited to 30 mins of static position. Functional Limitations- Recreation/ Unable to get back to regular Hobbies fitness routine PT-OP-C Subjective Start: 07/20/18 13:43 Freq: Status: Active Protocol: Document 08/23/18 14:29 EA (Rec: 08/23/18 14:36 EA [id number]) OP-PT Subjective Patient Comments Patient Comments Pt reports he would be out for vacation for and wants to his back to ge better as skiing activities is possible. Patient Reported Progress Improving PT-OP-F Manual Assessment Start: 07/20/18 13:43 Freq: Status: Active Protocol: Document 07/20/18 17:10 EA (Rec: 07/25/18 11:10 EA [id number]) Manual Assessments Soft Tissue Assessment Soft Tissue Mobility Assessment Tight Left pralumbars, thoracolumbar fascia and QL. PT-OP-G Mobility & Gait Start: 07/20/18 13:43 Freq: Status: Active Protocol: Document 07/20/18 17:17 EA (Rec: 07/21/18 17:31 EA [id number]) OP Mobility Evaluation Bed Mobility Rolling Indep with mild difficulty Supine to and from Sit INdep with mild difficulty Transfers Sit to Stand indep Bed to Chair Transfers indep Stair Climbing Evaluation Devices Stair Climbing Assistive Devices None PT-OP-J Posture/Palpation/Skin Start: 07/20/18 13:43 Freq: Status: Active Protocol: Document 07/20/18 17:17 EA (Rec: 07/21/18 17:31 EA [id number]) Posture Evaluation Position Standing Head/C-Spine Posture Forward Head L-Spine Posture Flattened Shoulder Posture (L) Elevated Pelvis Posture Posterior Tilted (L) Iliac Crest Inferior Palpation Assessment Location One Palpation Location Left paralumbars,QL Palpation Findings Soft Tissue Tightness Tenderness Palpation Details Grade 2/4 tenderness to left paralumbars- QL. PT-OP-K Range of Motion Start: 07/20/18 13:43 Freq: Status: Active Protocol: Document 07/20/18 17:17 EA (Rec: 07/21/18 17:31 EA [id number]) Lumbar Spine Range of Motion Lumbar Spine Active Percentage Testing Position Standing Flexion 90 Extension 85 Rotation Left 75 Rotation Right 90 Lateral Flexion Left 75 Lateral Flexion Right 60 ROM Limitations Soft Tissue Tightness Pain PT-OP-L Special Tests Start: 07/20/18 13:43 Freq: Status: Active Protocol: Document 07/20/18 17:17 EA (Rec: 07/21/18 17:31 EA [id number]) Special Tests Lumbar Spine Special Tests Straight Leg Raise Test Results negative Prone Instability Test Test Results negative Other- 3 Test Results Negative Gaenslen's Other- 1 Test Results Positive Posterior quadrant test (Facets) PT-OP-M Strength Start: 07/20/18 13:43 Freq: Status: Active Protocol: Document 07/20/18 17:32 EA (Rec: 07/21/18 17:33 EA [id number]) Trunk Strength Trunk Manual Muscle Testing Testing Position Supine Flexion 4+ Good+ Extension 4+ Good+ Rotation Left 4- Good- Rotation Right 4- Good- Lateral Flexion Left 4 Good Lateral Flexion Right 4 Good Hip Strength Hip Manual Muscle Testing Right Reason Not Measured WFL Left Reason Not Measured WFL Knee Strength Knee Manual Muscle Testing Left Reason Not Measured WFL Ankle/Foot Strength Ankle and Foot Manual Muscle Testing Left Reason Not Measured WFL PT-OP-Q Treatments Start: 07/20/18 13:43 Freq: Status: Active Protocol: Document 08/23/18 14:29 EA (Rec: 08/23/18 14:36 EA [id number]) Cardio Equipment Elliptical Duration (Minutes) 6 Resistance 5 Gym Equipment Cable Column (Body Solid) Other- 2 Details Cable standing trunk rot Resistance 20 lbs Reps/Time x 10 reps each side x 2 Other- 1 Details cable sit to stand row Reps/Time x 12 reps x 2 sets at 40 lbs Shuttle Balance Red Comments Wide THERESA, Staggered Stance, Lateral Weight Shift Therapeutic Exercises Supine Exercises 2 Supine Exercise Name PPT with marching Reps/Minutes x 10 reps x 2 sets 1 Supine Exercise Name PPT with SLR Reps/Minutes x10 reps x 2 HS stretching Side bilateral Reps/Minutes 30 x 3 Piriformis stretching Side bilateral Reps/Minutes 30 x 3 Prone Exercises 1 Prone Exercise Name Plank: mountai climber, hip abd, hip exten alternate Reps/Minutes x 20 sec each Standing Exercises 1 Standing Exercise Name wall squat with fornt raises Resistance 5 lbs Reps/Minutes x 10 reps Manual Therapy Treatment Soft Tissue Mobilization 1 Body Location Left paralumbars, QL Mobilization Type Myofascial Release Rolling Sustained Pressure Trigger Point Release Intensity/Depth Moderate Body Position Prone Comments Noted tightness L lower lumbar paraspinals PT-OP-R Modalities Start: 07/20/18 13:43 Freq: Status: Active Protocol: Document 08/23/18 14:29 EA (Rec: 08/23/18 14:36 EA [id number]) Electric Stimulation Electric Stimulation Interferential Current (IFC) Body Location Left paralumbar Duration (Minutes) 15 Intensity 17 Patient Position Prone Combined With Heat/Cold Hot Pack PT-OP-T Assessment and Plan Start: 07/20/18 13:43 Freq: Status: Active Protocol: Document 08/23/18 16:05 KALINA (Rec: 08/23/18 16:07 KALINA [id number]) Physical Therapy Assessment Assessment Summary Assessment Improved functional exercises tolerance noted. Flexibility issues still noted but reinforced to patient HEP. Overall, patient is progressing well. Physical Therapy Plan Next Visit Focus/Plan Next Note Type Treatment Note Next Visit Plan Functional exercises; more flexibility exercises.
--- NOTE | 2018-08-26 15:56 | PT.OTN ---
Current Diagnoses Low back pain (08/26/18) Physical Therapy Treatment Note PT-OP-A Visit Information Start: 07/20/18 13:43 Freq: Status: Active Protocol: Document 08/26/18 15:15 DCW (Rec: 08/26/18 15:56 DCW [id number]) Out-Patient Physical Therapy Visit Information Visit Information Visit Type Treatment Note Visit Start Time 15:15 Visit Stop Time 16:10 Total Visit Minutes 55 Visit Number 10 Number of NURSE REVIEWER Visits 0 Evaluation Information Evaluation Date 07/20/18 PT-OP-B Current Condition Start: 07/20/18 13:43 Freq: Status: Active Protocol: Document 07/20/18 15:32 EA (Rec: 07/20/18 15:53 EA [id number]) Current Condition History of Current Condition Onset Date 6 months ago Current Complaints Left localized low back pain History of Current Condition Gradual onset with no known recent injury or history of back surgery. Pt reports pain mostly intensifies when he is in static position and disappear with light to mod activities. He noted low back stiffness increased upon waking up and gradually better as day goes. No recent diagnostic imaging. Pt reports did not take any pain meds in the past and until as of today. Prior Treatments and Tests None identified No diagnostic imaging done in the past Future Testing and Treatments Planned None identified Treatment Goals Patient/Caregiver Goals Pt wants to get back to active lifetyle such as running and going to the gym regulalry; reports scared to go back at this moment due to possible increase of symptoms. Prior Functional Status Baseline Function- ADL's Independent Baseline Function- Mobility Independent Baseline Function- Gait Indep with no limitation Baseline Function- Work/School No limitation at work 6 months ago Baseline Function- Recreation/Hobbies Use to run regulalry and perform resistance training Current Functional Impairments (Reported) Functional Limitations- ADL's Indep with mild difficulty Functional Limitations- Mobility/Gait Indep with slight difficulty Functional Limitations- Work/School Limited to 30 mins of static position. Functional Limitations- Recreation/ Unable to get back to regular Hobbies fitness routine PT-OP-C Subjective Start: 07/20/18 13:43 Freq: Status: Active Protocol: Document 08/26/18 15:15 DCW (Rec: 08/26/18 15:56 DCW [id number]) OP-PT Subjective Patient Comments Patient Comments Notes he would like to work a little more on getting his hamstrings to loosen up. PT-OP-F Manual Assessment Start: 07/20/18 13:43 Freq: Status: Active Protocol: Document 07/20/18 17:10 EA (Rec: 07/25/18 11:10 EA [id number]) Manual Assessments Soft Tissue Assessment Soft Tissue Mobility Assessment Tight Left pralumbars, thoracolumbar fascia and QL. PT-OP-G Mobility & Gait Start: 07/20/18 13:43 Freq: Status: Active Protocol: Document 07/20/18 17:17 EA (Rec: 07/21/18 17:31 EA [id number]) OP Mobility Evaluation Bed Mobility Rolling Indep with mild difficulty Supine to and from Sit INdep with mild difficulty Transfers Sit to Stand indep Bed to Chair Transfers indep Stair Climbing Evaluation Devices Stair Climbing Assistive Devices None PT-OP-J Posture/Palpation/Skin Start: 07/20/18 13:43 Freq: Status: Active Protocol: Document 07/20/18 17:17 EA (Rec: 07/21/18 17:31 EA [id number]) Posture Evaluation Position Standing Head/C-Spine Posture Forward Head L-Spine Posture Flattened Shoulder Posture (L) Elevated Pelvis Posture Posterior Tilted (L) Iliac Crest Inferior Palpation Assessment Location One Palpation Location Left paralumbars,QL Palpation Findings Soft Tissue Tightness Tenderness Palpation Details Grade 2/4 tenderness to left paralumbars- QL. PT-OP-K Range of Motion Start: 07/20/18 13:43 Freq: Status: Active Protocol: Document 07/20/18 17:17 EA (Rec: 07/21/18 17:31 EA [id number]) Lumbar Spine Range of Motion Lumbar Spine Active Percentage Testing Position Standing Flexion 90 Extension 85 Rotation Left 75 Rotation Right 90 Lateral Flexion Left 75 Lateral Flexion Right 60 ROM Limitations Soft Tissue Tightness Pain PT-OP-L Special Tests Start: 07/20/18 13:43 Freq: Status: Active Protocol: Document 07/20/18 17:17 EA (Rec: 07/21/18 17:31 EA [id number]) Special Tests Lumbar Spine Special Tests Straight Leg Raise Test Results negative Prone Instability Test Test Results negative Other- 3 Test Results Negative Gaenslen's Other- 1 Test Results Positive Posterior quadrant test (Facets) PT-OP-M Strength Start: 07/20/18 13:43 Freq: Status: Active Protocol: Document 07/20/18 17:32 EA (Rec: 07/21/18 17:33 EA [id number]) Trunk Strength Trunk Manual Muscle Testing Testing Position Supine Flexion 4+ Good+ Extension 4+ Good+ Rotation Left 4- Good- Rotation Right 4- Good- Lateral Flexion Left 4 Good Lateral Flexion Right 4 Good Hip Strength Hip Manual Muscle Testing Right Reason Not Measured WFL Left Reason Not Measured WFL Knee Strength Knee Manual Muscle Testing Left Reason Not Measured WFL Ankle/Foot Strength Ankle and Foot Manual Muscle Testing Left Reason Not Measured WFL PT-OP-Q Treatments Start: 07/20/18 13:43 Freq: Status: Active Protocol: Document 08/26/18 15:15 DCW (Rec: 08/26/18 15:56 DCW [id number]) Cardio Equipment Elliptical Duration (Minutes) 5 Resistance 5 Gym Equipment Shuttle Balance Red Comments Wide THERESA /c perturbations, Staggered Stance, Lateral Weight Shift Therapeutic Ball Resisted Trunk Rotation Exercise Details Rotation vs T-band Ball Size/Color Green - 65 cm Lv 3 T-band Body Position Sitting Therapeutic Exercises Standing Exercises Hamstring Stretch Standing Exercise Name HS step stretch Side bilateral 1 Standing Exercise Name wall squat with fornt raises Resistance 5 lbs Reps/Minutes x 10 reps Manual Therapy Treatment Soft Tissue Mobilization 2 Body Location Bilateral Hamstrings Mobilization Type Instrument Assisted Rolling Intensity/Depth Moderate Body Position Prone 1 Body Location Left paralumbars, QL Mobilization Type Myofascial Release Rolling Sustained Pressure Trigger Point Release Intensity/Depth Moderate Body Position Prone Comments Noted tightness L lower lumbar paraspinals PT-OP-R Modalities Start: 07/20/18 13:43 Freq: Status: Active Protocol: Document 08/26/18 15:15 DCW (Rec: 08/26/18 15:56 DCW [id number]) Electric Stimulation Electric Stimulation Interferential Current (IFC) Body Location Left paralumbar Duration (Minutes) 15 Intensity 17 Patient Position Prone Combined With Heat/Cold Hot Pack PT-OP-T Assessment and Plan Start: 07/20/18 13:43 Freq: Status: Active Protocol: Document 08/26/18 15:15 DCW (Rec: 08/26/18 15:56 DCW [id number]) Physical Therapy Assessment Assessment Summary Assessment Pt continuing to present with decreased low back pain and improved functional mobility. Physical Therapy Plan Frequency and Duration Frequency of Treatment 2x/Week Duration of Treatment 8 wks Plan of Care Start Date 07/20/18 Plan of Care End Date 09/14/18 Next Visit Focus/Plan Next Note Type Treatment Note Next Visit Plan Functional exercises; more flexibility exercises.
--- NOTE | 2018-08-30 15:04 | PT.OTN ---
Current Diagnoses Low back pain (08/30/18) Physical Therapy Treatment Note PT-OP-A Visit Information Start: 07/20/18 13:43 Freq: Status: Active Protocol: Document 08/30/18 13:49 EA (Rec: 08/30/18 13:54 EA [id number]) Out-Patient Physical Therapy Visit Information Visit Information Visit Type Treatment Note Visit Start Time 14:30 Visit Stop Time 15:15 Total Visit Minutes 55 Visit Number 11 PT-OP-B Current Condition Start: 07/20/18 13:43 Freq: Status: Active Protocol: Document 07/20/18 15:32 EA (Rec: 07/20/18 15:53 EA [id number]) Current Condition History of Current Condition Onset Date 6 months ago Current Complaints Left localized low back pain History of Current Condition Gradual onset with no known recent injury or history of back surgery. Pt reports pain mostly intensifies when he is in static position and disappear with light to mod activities. He noted low back stiffness increased upon waking up and gradually better as day goes. No recent diagnostic imaging. Pt reports did not take any pain meds in the past and until as of today. Prior Treatments and Tests None identified No diagnostic imaging done in the past Future Testing and Treatments Planned None identified Treatment Goals Patient/Caregiver Goals Pt wants to get back to active lifetyle such as running and going to the gym regulalry; reports scared to go back at this moment due to possible increase of symptoms. Prior Functional Status Baseline Function- ADL's Independent Baseline Function- Mobility Independent Baseline Function- Gait Indep with no limitation Baseline Function- Work/School No limitation at work 6 months ago Baseline Function- Recreation/Hobbies Use to run regulalry and perform resistance training Current Functional Impairments (Reported) Functional Limitations- ADL's Indep with mild difficulty Functional Limitations- Mobility/Gait Indep with slight difficulty Functional Limitations- Work/School Limited to 30 mins of static position. Functional Limitations- Recreation/ Unable to get back to regular Hobbies fitness routine PT-OP-C Subjective Start: 07/20/18 13:43 Freq: Status: Active Protocol: Document 08/30/18 13:49 EA (Rec: 08/30/18 13:54 EA [id number]) OP-PT Subjective Patient Comments Patient Comments my back still hurts in the morning upon waking up but slowly getting better; states my pain is much better than it was. Patient Reported Progress Improving PT-OP-F Manual Assessment Start: 07/20/18 13:43 Freq: Status: Active Protocol: Document 07/20/18 17:10 EA (Rec: 07/25/18 11:10 EA [id number]) Manual Assessments Soft Tissue Assessment Soft Tissue Mobility Assessment Tight Left pralumbars, thoracolumbar fascia and QL. PT-OP-G Mobility & Gait Start: 07/20/18 13:43 Freq: Status: Active Protocol: Document 07/20/18 17:17 EA (Rec: 07/21/18 17:31 EA [id number]) OP Mobility Evaluation Bed Mobility Rolling Indep with mild difficulty Supine to and from Sit INdep with mild difficulty Transfers Sit to Stand indep Bed to Chair Transfers indep Stair Climbing Evaluation Devices Stair Climbing Assistive Devices None PT-OP-J Posture/Palpation/Skin Start: 07/20/18 13:43 Freq: Status: Active Protocol: Document 07/20/18 17:17 EA (Rec: 07/21/18 17:31 EA [id number]) Posture Evaluation Position Standing Head/C-Spine Posture Forward Head L-Spine Posture Flattened Shoulder Posture (L) Elevated Pelvis Posture Posterior Tilted (L) Iliac Crest Inferior Palpation Assessment Location One Palpation Location Left paralumbars,QL Palpation Findings Soft Tissue Tightness Tenderness Palpation Details Grade 2/4 tenderness to left paralumbars- QL. PT-OP-K Range of Motion Start: 07/20/18 13:43 Freq: Status: Active Protocol: Document 07/20/18 17:17 EA (Rec: 07/21/18 17:31 EA [id number]) Lumbar Spine Range of Motion Lumbar Spine Active Percentage Testing Position Standing Flexion 90 Extension 85 Rotation Left 75 Rotation Right 90 Lateral Flexion Left 75 Lateral Flexion Right 60 ROM Limitations Soft Tissue Tightness Pain PT-OP-L Special Tests Start: 07/20/18 13:43 Freq: Status: Active Protocol: Document 07/20/18 17:17 EA (Rec: 07/21/18 17:31 EA [id number]) Special Tests Lumbar Spine Special Tests Straight Leg Raise Test Results negative Prone Instability Test Test Results negative Other- 3 Test Results Negative Gaenslen's Other- 1 Test Results Positive Posterior quadrant test (Facets) PT-OP-M Strength Start: 12/12/18 13:43 Freq: Status: Active Protocol: Document 07/20/18 17:32 EA (Rec: 07/21/18 17:33 EA [id number]) Trunk Strength Trunk Manual Muscle Testing Testing Position Supine Flexion 4+ Good+ Extension 4+ Good+ Rotation Left 4- Good- Rotation Right 4- Good- Lateral Flexion Left 4 Good Lateral Flexion Right 4 Good Hip Strength Hip Manual Muscle Testing Right Reason Not Measured WFL Left Reason Not Measured WFL Knee Strength Knee Manual Muscle Testing Left Reason Not Measured WFL Ankle/Foot Strength Ankle and Foot Manual Muscle Testing Left Reason Not Measured WFL PT-OP-Q Treatments Start: 07/20/18 13:43 Freq: Status: Active Protocol: Document 08/30/18 14:28 EA (Rec: 08/30/18 14:33 EA [id number]) Cardio Equipment Elliptical Duration (Minutes) 5 Resistance 5 Gym Equipment Cable Column (Body Solid) Other- 2 Details Cable standing trunk rot Resistance 20 lbs Reps/Time x 10 reps each side x 2 Other- 1 Details cable sit to stand row Reps/Time x 12 reps x 2 sets at 40 lbs Therapeutic Exercises Supine Exercises 2 Supine Exercise Name PPT with marching Reps/Minutes x 10 reps x 2 sets 1 Supine Exercise Name PPT with SLR Reps/Minutes x10 reps x 2 HS stretching Side bilateral Reps/Minutes 30 x 3 Piriformis stretching Side bilateral Prone Exercises 1 Prone Exercise Name Plank: mountai climber, hip abd, hip exten alternate Reps/Minutes x 20 sec each Standing Exercises 2 Standing Exercise Name BUSO front raises, side raises wih squats Side right Resistance x 5-7 lbs Reps/Minutes x 12 reps x 2 1 Standing Exercise Name wall squat with front raises Resistance 5 lbs Reps/Minutes x 10 reps Manual Therapy Treatment Soft Tissue Mobilization 2 Body Location Bilateral Hamstrings 1 Body Location Left paralumbars, QL Mobilization Type Myofascial Release Rolling Sustained Pressure Trigger Point Release Intensity/Depth Moderate Body Position Prone Comments Noted tightness L lower lumbar paraspinals PT-OP-R Modalities Start: 07/20/18 13:43 Freq: Status: Active Protocol: Document 08/30/18 14:28 EA (Rec: 08/30/18 14:33 EA [id number]) Electric Stimulation Electric Stimulation Interferential Current (IFC) Body Location Left paralumbar Duration (Minutes) 15 Intensity 17 Patient Position Prone Combined With Heat/Cold Hot Pack PT-OP-T Assessment and Plan Start: 07/20/18 13:43 Freq: Status: Active Protocol: Document 08/30/18 14:28 EA (Rec: 08/30/18 14:33 EA [id number]) Physical Therapy Assessment Assessment Summary Assessment No discomfort with standing core exercises but with bed mobility only. Overall patient has improved core standing exercises. Continued to show exercises tolerance. Physical Therapy Plan Next Visit Focus/Plan Next Note Type Treatment Note
--- NOTE | 2018-09-02 14:31 | PT.OTN ---
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 Pt reports pain mostly intensifies when he is in static position and disappear with light to mod activities. He noted low back stiffness increased upon waking up and gradually better as day goes. No recent diagnostic imaging. Pt reports did not take any pain meds in the past and until as of today. Prior Treatments and Tests None identified No diagnostic imaging done in the past Future Testing and Treatments Planned None identified Treatment Goals Patient/Caregiver Goals Pt wants to get back to active lifetyle such as running and going to the gym regulalry; reports scared to go back at this moment due to possible increase of symptoms. Prior Functional Status Baseline Function- ADL's Independent Baseline Function- Mobility Independent Baseline Function- Gait Indep with no limitation Baseline Function- Work/School No limitation at work 6 months ago Baseline Function- Recreation/Hobbies Use to run regulalry and perform resistance training Current Functional Impairments (Reported) Functional Limitations- ADL's Indep with mild difficulty Functional Limitations- Mobility/Gait Indep with slight difficulty Functional Limitations- Work/School Limited to 30 mins of static position. Functional Limitations- Recreation/ Unable to get back to regular Hobbies fitness routine PT-OP-C Subjective Start: 07/20/18 13:43 Freq: Status: Active Protocol: Document 09/02/18 13:50 DCW (Rec: 09/02/18 14:31 DCW [id number]) OP-PT Subjective Patient Comments Patient Comments Pt reports that if when I started here I was at an 8/10 pain level, now I would say it is more like a 3/10, but I still have a big problem with sudden sneezes. PT-OP-F Manual Assessment Start: 07/20/18 13:43 Freq: Status: Active Protocol: Document 07/20/18 17:10 EA (Rec: 07/25/18 11:10 EA [id number]) Manual Assessments Soft Tissue Assessment Soft Tissue Mobility Assessment Tight Left pralumbars, thoracolumbar fascia and QL. PT-OP-G Mobility & Gait Start: 07/20/18 13:43 Freq: Status: Active Protocol: Document 07/20/18 17:17 EA (Rec: 07/21/18 17:31 EA [id number]) OP Mobility Evaluation Bed Mobility Rolling Indep with mild difficulty Supine to and from Sit INdep with mild difficulty Transfers Sit to Stand indep Bed to Chair Transfers indep Stair Climbing Evaluation Devices Stair Climbing Assistive Devices None PT-OP-J Posture/Palpation/Skin Start: 07/20/18 13:43 Freq: Status: Active Protocol: Document 07/20/18 17:17 EA (Rec: 07/21/18 17:31 EA [id number]) Posture Evaluation Position Standing Head/C-Spine Posture Forward Head L-Spine Posture Flattened Shoulder Posture (L) Elevated Pelvis Posture Posterior Tilted (L) Iliac Crest Inferior Palpation Assessment Location One Palpation Location Left paralumbars,QL Palpation Findings Soft Tissue Tightness Tenderness Palpation Details Grade 2/4 tenderness to left paralumbars- QL. PT-OP-K Range of Motion Start: 07/20/18 13:43 Freq: Status: Active Protocol: Document 07/20/18 17:17 EA (Rec: 07/21/18 17:31 EA [id number]) Lumbar Spine Range of Motion Lumbar Spine Active Percentage Testing Position Standing Flexion 90 Extension 85 Rotation Left 75 Rotation Right 90 Lateral Flexion Left 75 Lateral Flexion Right 60 ROM Limitations Soft Tissue Tightness Pain PT-OP-L Special Tests Start: 07/20/18 13:43 Freq: Status: Active Protocol: Document 07/20/18 17:17 EA (Rec: 07/21/18 17:31 EA [id number]) Special Tests Lumbar Spine Special Tests Straight Leg Raise Test Results negative Prone Instability Test Test Results negative Other- 3 Test Results Negative Gaenslen's Other- 1 Test Results Positive Posterior quadrant test (Facets) PT-OP-M Strength Start: 07/20/18 13:43 Freq: Status: Active Protocol: Document 07/20/18 17:32 EA (Rec: 07/21/18 17:33 EA [id number]) Trunk Strength Trunk Manual Muscle Testing Testing Position Supine Flexion 4+ Good+ Extension 4+ Good+ Rotation Left 4- Good- Rotation Right 4- Good- Lateral Flexion Left 4 Good Lateral Flexion Right 4 Good Hip Strength Hip Manual Muscle Testing Right Reason Not Measured WFL Left Reason Not Measured WFL Knee Strength Knee Manual Muscle Testing Left Reason Not Measured WFL Ankle/Foot Strength Ankle and Foot Manual Muscle Testing Left Reason Not Measured WFL PT-OP-Q Treatments Start: 07/20/18 13:43 Freq: Status: Active Protocol: Document 09/02/18 13:50 DCW (Rec: 09/02/18 14:31 DCW [id number]) Cardio Equipment Elliptical Duration (Minutes) 5 Resistance 5 Gym Equipment Cable Column (Body Solid) Other- 2 Details Cable standing trunk rot Resistance 20 lbs Reps/Time x 10 reps each side x 2 Other- 1 Details cable sit to stand row Reps/Time x 12 reps x 2 sets at 40 lbs Shuttle Balance Red Comments Wide THERESA (EO/EC, perturbations ) Staggered Stance, Lateral Weight Shift Therapeutic Exercises Standing Exercises Hamstring Stretch Standing Exercise Name HS step stretch Side bilateral Manual Therapy Treatment Soft Tissue Mobilization 2 Body Location Bilateral Hamstrings Mobilization Type Instrument Assisted Rolling Intensity/Depth Moderate Body Position Prone 1 Body Location Left paralumbars, QL Mobilization Type Myofascial Release Rolling Sustained Pressure Trigger Point Release Intensity/Depth Moderate Body Position Prone Comments Noted tightness L lower lumbar paraspinals PT-OP-R Modalities Start: 07/20/18 13:43 Freq: Status: Active Protocol: Document 09/02/18 13:50 DCW (Rec: 09/02/18 14:31 DCW [id number]) Electric Stimulation Electric Stimulation Interferential Current (IFC) Body Location Left paralumbar Duration (Minutes) 15 Intensity 17 Patient Position Prone Combined With Heat/Cold Hot Pack PT-OP-T Assessment and Plan Start: 07/20/18 13:43 Freq: Status: Active Protocol: Document 09/02/18 13:50 DCW (Rec: 09/02/18 14:31 ASH [id number]) Physical Therapy Assessment Assessment Summary Assessment Pt continues to improve, making very good progress controlling back pain in his daily functional life. Physical Therapy Plan Frequency and Duration Frequency of Treatment 2x/Week Duration of Treatment 8 wks Plan of Care Start Date 07/20/18 Plan of Care End Date 09/14/18 Next Visit Focus/Plan Next Note Type Treatment Note Next Visit Plan Functional exercises; more flexibility exercises.
--- NOTE | 2018-09-06 16:02 | PT.OTN ---
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 Pt reports pain mostly intensifies when he is in static position and disappear with light to mod activities. He noted low back stiffness increased upon waking up and gradually better as day goes. No recent diagnostic imaging. Pt reports did not take any pain meds in the past and until as of today. Prior Treatments and Tests None identified No diagnostic imaging done in the past Future Testing and Treatments Planned None identified Treatment Goals Patient/Caregiver Goals Pt wants to get back to active lifetyle such as running and going to the gym regulalry; reports scared to go back at this moment due to possible increase of symptoms. Prior Functional Status Baseline Function- ADL's Independent Baseline Function- Mobility Independent Baseline Function- Gait Indep with no limitation Baseline Function- Work/School No limitation at work 6 months ago Baseline Function- Recreation/Hobbies Use to run regulalry and perform resistance training Current Functional Impairments (Reported) Functional Limitations- ADL's Indep with mild difficulty Functional Limitations- Mobility/Gait Indep with slight difficulty Functional Limitations- Work/School Limited to 30 mins of static position. Functional Limitations- Recreation/ Unable to get back to regular Hobbies fitness routine PT-OP-C Subjective Start: 07/20/18 13:43 Freq: Status: Active Protocol: Document 09/06/18 15:20 DCW (Rec: 09/06/18 16:02 DCW [id number]) OP-PT Subjective Patient Comments Patient Comments Pt reports he was pretty sore after my last visit, but in a good way. PT-OP-F Manual Assessment Start: 07/20/18 13:43 Freq: Status: Active Protocol: Document 07/20/18 17:10 EA (Rec: 07/25/18 11:10 EA [id number]) Manual Assessments Soft Tissue Assessment Soft Tissue Mobility Assessment Tight Left pralumbars, thoracolumbar fascia and QL. PT-OP-G Mobility & Gait Start: 07/20/18 13:43 Freq: Status: Active Protocol: Document 07/20/18 17:17 EA (Rec: 07/21/18 17:31 EA [id number]) OP Mobility Evaluation Bed Mobility Rolling Indep with mild difficulty Supine to and from Sit INdep with mild difficulty Transfers Sit to Stand indep Bed to Chair Transfers indep Stair Climbing Evaluation Devices Stair Climbing Assistive Devices None PT-OP-J Posture/Palpation/Skin Start: 07/20/18 13:43 Freq: Status: Active Protocol: Document 07/20/18 17:17 EA (Rec: 07/21/18 17:31 EA [id number]) Posture Evaluation Position Standing Head/C-Spine Posture Forward Head L-Spine Posture Flattened Shoulder Posture (L) Elevated Pelvis Posture Posterior Tilted (L) Iliac Crest Inferior Palpation Assessment Location One Palpation Location Left paralumbars,QL Palpation Findings Soft Tissue Tightness Tenderness Palpation Details Grade 2/4 tenderness to left paralumbars- QL. PT-OP-K Range of Motion Start: 07/20/18 13:43 Freq: Status: Active Protocol: Document 07/20/18 17:17 EA (Rec: 07/21/18 17:31 EA [id number]) Lumbar Spine Range of Motion Lumbar Spine Active Percentage Testing Position Standing Flexion 90 Extension 85 Rotation Left 75 Rotation Right 90 Lateral Flexion Left 75 Lateral Flexion Right 60 ROM Limitations Soft Tissue Tightness Pain PT-OP-L Special Tests Start: 07/20/18 13:43 Freq: Status: Active Protocol: Document 07/20/18 17:17 EA (Rec: 07/21/18 17:31 EA [id number]) Special Tests Lumbar Spine Special Tests Straight Leg Raise Test Results negative Prone Instability Test Test Results negative Other- 3 Test Results Negative Gaenslen's Other- 1 Test Results Positive Posterior quadrant test (Facets) PT-OP-M Strength Start: 07/20/18 13:43 Freq: Status: Active Protocol: Document 07/20/18 17:32 EA (Rec: 07/21/18 17:33 EA [id number]) Trunk Strength Trunk Manual Muscle Testing Testing Position Supine Flexion 4+ Good+ Extension 4+ Good+ Rotation Left 4- Good- Rotation Right 4- Good- Lateral Flexion Left 4 Good Lateral Flexion Right 4 Good Hip Strength Hip Manual Muscle Testing Right Reason Not Measured WFL Left Reason Not Measured WFL Knee Strength Knee Manual Muscle Testing Left Reason Not Measured WFL Ankle/Foot Strength Ankle and Foot Manual Muscle Testing Left Reason Not Measured WFL PT-OP-Q Treatments Start: 07/20/18 13:43 Freq: Status: Active Protocol: Document 09/06/18 15:20 DCW (Rec: 09/06/18 16:02 DCW [id number]) Cardio Equipment Elliptical Duration (Minutes) 5 Resistance 5 Gym Equipment Cable Column (Body Solid) Other- 2 Details Cable standing trunk rot Resistance 20 lbs Reps/Time x 10 reps each side x 2 Other- 1 Details cable sit to stand row Reps/Time x 12 reps x 2 sets at 40 lbs Shuttle Recovery Plyometric Hopping Resistance 62# Shuttle Balance Red Comments Wide THERESA (EO/EC, perturbations ) Staggered Stance, Lateral Weight Shift Therapeutic Ball Resisted Trunk Rotation Exercise Details Rotation vs T-band Ball Size/Color Green - 65 cm Lv 3 T-band Body Position Sitting Therapeutic Exercises Standing Exercises Hamstring Stretch Standing Exercise Name HS step stretch Side bilateral Manual Therapy Treatment Soft Tissue Mobilization 1 Body Location Left paralumbars, QL Mobilization Type Myofascial Release Rolling Sustained Pressure Trigger Point Release Intensity/Depth Moderate Body Position Prone Comments Noted tightness L lower lumbar paraspinals PT-OP-R Modalities Start: 07/20/18 13:43 Freq: Status: Active Protocol: Document 09/06/18 15:20 DCW (Rec: 09/06/18 16:02 DCW [id number]) Electric Stimulation Electric Stimulation Interferential Current (IFC) Body Location Left paralumbar Duration (Minutes) 15 Intensity 17 Patient Position Prone Combined With Heat/Cold Hot Pack PT-OP-T Assessment and Plan Start: 07/20/18 13:43 Freq: Status: Active Protocol: Document 09/06/18 15:20 DCW (Rec: 09/06/18 16:02 ASH [id number]) Physical Therapy Assessment Assessment Summary Assessment Pt continues to complain of stiffness with extended positioning, however overall feels like he has improved quite a bit since beginning therapy. Physical Therapy Plan Frequency and Duration Frequency of Treatment 2x/Week Duration of Treatment 8 wks Plan of Care Start Date 07/20/18 Plan of Care End Date 09/14/18 Next Visit Focus/Plan Next Note Type Treatment Note Next Visit Plan Functional exercises; more flexibility exercises.
--- NOTE | 2018-09-15 16:24 | PT.OTN ---
Current Diagnoses Low back pain (09/15/18) Physical Therapy Treatment Note PT-OP-A Visit Information Start: 07/20/18 13:43 Freq: Status: Active Protocol: Document 09/15/18 14:36 SAK (Rec: 09/15/18 16:23 SAK [id number]) Out-Patient Physical Therapy Visit Information Visit Information Visit Type Treatment Note Visit Start Time 14:30 Visit Stop Time 15:25 Total Visit Minutes 55 Visit Number 14 Evaluation Information Evaluation Date 07/20/18 PT-OP-B Current Condition Start: 07/20/18 13:43 Freq: Status: Active Protocol: Document 07/20/18 15:32 EA (Rec: 07/20/18 15:53 EA [id number]) Current Condition History of Current Condition Onset Date 6 months ago Current Complaints Left localized low back pain History of Current Condition Gradual onset with no known recent injury or history of back surgery. Pt reports pain mostly intensifies when he is in static position and disappear with light to mod activities. He noted low back stiffness increased upon waking up and gradually better as day goes. No recent diagnostic imaging. Pt reports did not take any pain meds in the past and until as of today. Prior Treatments and Tests None identified No diagnostic imaging done in the past Future Testing and Treatments Planned None identified Treatment Goals Patient/Caregiver Goals Pt wants to get back to active lifetyle such as running and going to the gym regulalry; reports scared to go back at this moment due to possible increase of symptoms. Prior Functional Status Baseline Function- ADL's Independent Baseline Function- Mobility Independent Baseline Function- Gait Indep with no limitation Baseline Function- Work/School No limitation at work 6 months ago Baseline Function- Recreation/Hobbies Use to run regulalry and perform resistance training Current Functional Impairments (Reported) Functional Limitations- ADL's Indep with mild difficulty Functional Limitations- Mobility/Gait Indep with slight difficulty Functional Limitations- Work/School Limited to 30 mins of static position. Functional Limitations- Recreation/ Unable to get back to regular Hobbies fitness routine PT-OP-C Subjective Start: 07/20/18 13:43 Freq: Status: Active Protocol: Document 09/15/18 14:36 SAK (Rec: 09/15/18 16:23 SAK [id number]) OP-PT Subjective Patient Comments Patient Comments States he was gone skiing in [place]; tolerated skiing pretty well except for drops causing some spinal compression. States he has to brace his spine before moving, especially out of bed otherwise has pain. Pain level 4/10 PT-OP-F Manual Assessment Start: 07/20/18 13:43 Freq: Status: Active Protocol: Document 07/20/18 17:10 EA (Rec: 07/25/18 11:10 EA [id number]) Manual Assessments Soft Tissue Assessment Soft Tissue Mobility Assessment Tight Left pralumbars, thoracolumbar fascia and QL. PT-OP-G Mobility & Gait Start: 07/20/18 13:43 Freq: Status: Active Protocol: Document 07/20/18 17:17 EA (Rec: 07/21/18 17:31 EA [id number]) OP Mobility Evaluation Bed Mobility Rolling Indep with mild difficulty Supine to and from Sit INdep with mild difficulty Transfers Sit to Stand indep Bed to Chair Transfers indep Stair Climbing Evaluation Devices Stair Climbing Assistive Devices None PT-OP-J Posture/Palpation/Skin Start: 07/20/18 13:43 Freq: Status: Active Protocol: Document 07/20/18 17:17 EA (Rec: 07/21/18 17:31 EA [id number]) Posture Evaluation Position Standing Head/C-Spine Posture Forward Head L-Spine Posture Flattened Shoulder Posture (L) Elevated Pelvis Posture Posterior Tilted (L) Iliac Crest Inferior Palpation Assessment Location One Palpation Location Left paralumbars,QL Palpation Findings Soft Tissue Tightness Tenderness Palpation Details Grade 2/4 tenderness to left paralumbars- QL. PT-OP-K Range of Motion Start: 07/20/18 13:43 Freq: Status: Active Protocol: Document 07/20/18 17:17 EA (Rec: 07/21/18 17:31 EA [id number]) Lumbar Spine Range of Motion Lumbar Spine Active Percentage Testing Position Standing Flexion 90 Extension 85 Rotation Left 75 Rotation Right 90 Lateral Flexion Left 75 Lateral Flexion Right 60 ROM Limitations Soft Tissue Tightness Pain PT-OP-L Special Tests Start: 07/20/18 13:43 Freq: Status: Active Protocol: Document 07/20/18 17:17 EA (Rec: 07/21/18 17:31 EA [id number]) Special Tests Lumbar Spine Special Tests Straight Leg Raise Test Results negative Prone Instability Test Test Results negative Other- 3 Test Results Negative Gaenslen's Other- 1 Test Results Positive Posterior quadrant test (Facets) PT-OP-M Strength Start: 07/20/18 13:43 Freq: Status: Active Protocol: Document 07/20/18 17:32 EA (Rec: 07/21/18 17:33 EA [id number]) Trunk Strength Trunk Manual Muscle Testing Testing Position Supine Flexion 4+ Good+ Extension 4+ Good+ Rotation Left 4- Good- Rotation Right 4- Good- Lateral Flexion Left 4 Good Lateral Flexion Right 4 Good Hip Strength Hip Manual Muscle Testing Right Reason Not Measured WFL Left Reason Not Measured WFL Knee Strength Knee Manual Muscle Testing Left Reason Not Measured WFL Ankle/Foot Strength Ankle and Foot Manual Muscle Testing Left Reason Not Measured WFL PT-OP-Q Treatments Start: 07/20/18 13:43 Freq: Status: Active Protocol: Document 09/15/18 14:36 SAK (Rec: 09/15/18 15:16 SAK [id number]) Cardio Equipment Elliptical Duration (Minutes) 6 Resistance 5 Gym Equipment Cable Column (Body Solid) Other- 2 Details Cable standing trunk rot Resistance 20 lbs Reps/Time x 10 reps each side x 2 Other- 1 Details cable sit to stand row Reps/Time x 12 reps x 2 sets at 40 lbs Shuttle Recovery Bilateral Heel Raises Details followed by HC stretch Reps/Time 10x Plyometric Hopping Resistance 62# Shuttle Balance Red Comments Wide THERESA (EO/EC, perturbations ) Staggered Stance, Lateral Weight Shift Therapeutic Exercises Supine Exercises Piriformis stretching Side bilateral Standing Exercises Hamstring Stretch Standing Exercise Name HS step stretch Side bilateral Manual Therapy Treatment Soft Tissue Mobilization 1 Body Location Left paralumbars, QL Mobilization Type Myofascial Release Rolling Sustained Pressure Trigger Point Release Intensity/Depth Moderate Body Position Prone Comments Noted tightness L lower lumbar paraspinals Self-Care/Home Management Treatment Education Patient Education Body Mechanics Joint Protection Posture Other Education Pay attention to habitual postures and movements. PT-OP-R Modalities Start: 07/20/18 13:43 Freq: Status: Active Protocol: Document 09/15/18 14:36 SAK (Rec: 09/15/18 16:23 SAK [id number]) Electric Stimulation Electric Stimulation Interferential Current (IFC) Body Location Left paralumbar Duration (Minutes) 15 Intensity 17 Patient Position Prone Combined With Heat/Cold Hot Pack PT-OP-T Assessment and Plan Start: 07/20/18 13:43 Freq: Status: Active Protocol: Document 09/15/18 14:36 [facility] (Rec: 09/15/18 16:23 [facility] [id number]) Physical Therapy Assessment Goals Four Impairment PS of 5/10 upon getting up in the morning New Client Banking Services Clerk Goal (LTG) Patient will reports no pain upon waking in the morning. LTG Duration 4 wks Three Impairment No HEP in place New Client Banking Services Clerk Goal (LTG) Patient will exhibit independent safe home exercises program. LTG Duration 4 wks Two Impairment Sitting tolerance of less than 5 minutes New Client Banking Services Clerk Goal (LTG) Patient will increase sitting tolerance to more than 30 mins with no increase in symptoms LTG Duration 4 wks One Impairment Oswestry impairment score 32% impaired Long-Term Goal (LTG) Patient will have Oswestry impairment score of less than 10% impaired LTG Duration 4 wks Assessment Summary Assessment Tolerated treatment well, cues for not pushing into painful ROM with spinal rotation. Physical Therapy Plan Frequency and Duration Frequency of Treatment 2x/Week Duration of Treatment 8 wks Plan of Care Start Date 07/20/18 Plan of Care End Date 09/14/18 Therapeutic Interventions Therapeutic Interventions Home Exercise Program Joint Mobilizations Manual Therapy Patient/Caregiver Education Self-Care/Home Management Soft Tissue Mobilization Taping Therapeutic Exercises Modalities Cold Pack/Ice Massage Electric Stimulation Hot Packs Ultrasound Next Visit Focus/Plan Next Note Type Treatment Note Next Visit Plan Continue PT per POC.
--- NOTE | 2018-12-07 16:57 | PT.OPDS ---
Current Diagnoses Low back pain (09/15/18) Provider Visit Care Team Role Provider Type Hollie Johnson DO Attending Provider Physician Primary Care Provider Specialty: Family Practice Address: [address] [place] [address], [id number] Email: [email or web address] Number Visit Number [id number] Discharge Summary PT-OP-B Current Condition Start: 07/20/18 13:43 Freq: Status: Active Protocol: Document 07/20/18 15:32 EA (Rec: 07/20/18 15:53 EA [id number]) Current Condition History of Current Condition Onset Date 6 months ago Current Complaints Left localized low back pain History of Current Condition Gradual onset with no known recent injury or history of back surgery. Pt reports pain mostly intensifies when he is in static position and disappear with light to mod activities. He noted low back stiffness increased upon waking up and gradually better as day goes. No recent diagnostic imaging. Pt reports did not take any pain meds in the past and until as of today. Prior Treatments and Tests None identified No diagnostic imaging done in the past Future Testing and Treatments Planned None identified Treatment Goals Patient/Caregiver Goals Pt wants to get back to active lifetyle such as running and going to the gym regulalry; reports scared to go back at this moment due to possible increase of symptoms. Prior Functional Status Baseline Function- ADL's Independent Baseline Function- Mobility Independent Baseline Function- Gait Indep with no limitation Baseline Function- Work/School No limitation at work 6 months ago Baseline Function- Recreation/Hobbies Use to run regulalry and perform resistance training Current Functional Impairments (Reported) Functional Limitations- ADL's Indep with mild difficulty Functional Limitations- Mobility/Gait Indep with slight difficulty Functional Limitations- Work/School Limited to 30 mins of static position. Functional Limitations- Recreation/ Unable to get back to regular Hobbies fitness routine PT-OP-C Subjective Start: 07/20/18 13:43 Freq: Status: Active Protocol: Document 12/07/18 16:53 EA (Rec: 12/07/18 16:57 EA [id number]) OP-PT Subjective Patient Comments Patient Comments By phone, patient reports that he has been compliant with HEP and low back pain is less frequent and intense; states that he is not able to come back for PT due to insurance copay. Patient requested to be discharged. PT-OP-F Manual Assessment Start: 07/20/18 13:43 Freq: Status: Active Protocol: Document 07/20/18 17:10 EA (Rec: 07/25/18 11:10 EA [id number]) Manual Assessments Soft Tissue Assessment Soft Tissue Mobility Assessment Tight Left pralumbars, thoracolumbar fascia and QL. PT-OP-G Mobility & Gait Start: 07/20/18 13:43 Freq: Status: Active Protocol: Document 07/20/18 17:17 EA (Rec: 07/21/18 17:31 EA [id number]) OP Mobility Evaluation Bed Mobility Rolling Indep with mild difficulty Supine to and from Sit INdep with mild difficulty Transfers Sit to Stand indep Bed to Chair Transfers indep Stair Climbing Evaluation Devices Stair Climbing Assistive Devices None PT-OP-J Posture/Palpation/Skin Start: 07/20/18 13:43 Freq: Status: Active Protocol: Document 07/20/18 17:17 EA (Rec: 07/21/18 17:31 EA [id number]) Posture Evaluation Position Standing Head/C-Spine Posture Forward Head L-Spine Posture Flattened Shoulder Posture (L) Elevated Pelvis Posture Posterior Tilted (L) Iliac Crest Inferior Palpation Assessment Location One Palpation Location Left paralumbars,QL Palpation Findings Soft Tissue Tightness Tenderness Palpation Details Grade 2/4 tenderness to left paralumbars- QL. PT-OP-K Range of Motion Start: 07/20/18 13:43 Freq: Status: Active Protocol: Document 07/20/18 17:17 EA (Rec: 07/21/18 17:31 EA [id number]) Lumbar Spine Range of Motion Lumbar Spine Active Percentage Testing Position Standing Flexion 90 Extension 85 Rotation Left 75 Rotation Right 90 Lateral Flexion Left 75 Lateral Flexion Right 60 ROM Limitations Soft Tissue Tightness Pain PT-OP-L Special Tests Start: 07/20/18 13:43 Freq: Status: Active Protocol: Document 07/20/18 17:17 EA (Rec: 07/21/18 17:31 EA [id number]) Special Tests Lumbar Spine Special Tests Straight Leg Raise Test Results negative Prone Instability Test Test Results negative Other- 3 Test Results Negative Gaenslen's Other- 1 Test Results Positive Posterior quadrant test (Facets) PT-OP-M Strength Start: 07/20/18 13:43 Freq: Status: Active Protocol: Document 07/20/18 17:32 EA (Rec: 07/21/18 17:33 EA [id number]) Trunk Strength Trunk Manual Muscle Testing Testing Position Supine Flexion 4+ Good+ Extension 4+ Good+ Rotation Left 4- Good- Rotation Right 4- Good- Lateral Flexion Left 4 Good Lateral Flexion Right 4 Good Hip Strength Hip Manual Muscle Testing Right Reason Not Measured WFL Left Reason Not Measured WFL Knee Strength Knee Manual Muscle Testing Left Reason Not Measured WFL Ankle/Foot Strength Ankle and Foot Manual Muscle Testing Left Reason Not Measured WFL PT-OP-T Assessment and Plan Start: 07/20/18 13:43 Freq: Status: Active Protocol: Document 12/07/18 16:53 EA (Rec: 12/07/18 16:57 EA [id number]) Physical Therapy Assessment Assessment Summary Assessment Patient is discharge today upon request. Physical Therapy Plan Discharge Physical Therapy Discharge Reasons Patient Request
== END 2018-12-21 16:04 | disposition home or self-care (01) ==
LOC: PHYS 14:30
PROVIDERS: PCP Family Medicine; Visit Provider Family Medicine
DX: M54.5 Low back pain (principal)
CPT/HCPCS: 97014; 97032; 97110; 97112; 97140; 97535; G0283

== ENCOUNTER → 2019-07-10 12:07 | Outpatient (CLI) | payer OTHER, SELFPAY ==
--- NOTE | 2019-07-10 12:09 | DI.RAD.S_ITS ---
PROCEDURE: XR LUMBAR SPINE 2-3V INDICATIONS: Lumbar Strain TECHNIQUE: 3 views of the lumbar spine were acquired. COMPARISON: None. FINDINGS: Bones: 5 [id number] vertebrae are present. There is normal bony alignment. No vertebral body compression fractures. No suspicious bony lesions. There is a moderately severe degree of degenerative disc disease with adjacent discogenic sclerosis involving the upper and lower vertebral margins, at L2-L3. This is greater on the right than the left. Soft tissues: Overlying bowel gas pattern is normal. No suspicious soft tissue calcifications. IMPRESSION: L2-L3 moderate to moderately severe degenerative disc disease with reactive sclerosis in the adjacent endplate and vertebral bodies. No trauma found, no acute disease is suspected. Dictated by: Mike Roberson M.D. on 07/10/2019 at 13:02 Approved by: Mike Roberson M.D. on 07/10/2019 at 13:04
== END ==
PROVIDERS: PCP Family Medicine; Visit Provider Family Medicine
DX: S39.012A Strain of muscle, fascia and tendon of lower back, initial encounter (principal); M51.36 Other intervertebral disc degeneration, lumbar region; X58.XXXA Exposure to other specified factors, initial encounter
CPT/HCPCS: 72100

== ENCOUNTER → 2020-12-20 12:38 | Outpatient (CLI) | payer OTHER, SELFPAY ==
--- NOTE | 2020-12-20 12:40 | DI.RAD.S_ITS ---
PROCEDURE: XR LUMBAR SPINE 2-3V INDICATIONS: low back pain TECHNIQUE: 3 views of the lumbar spine were acquired. COMPARISON: [facility], CR, XR LUMBAR SPINE 2-3V, 07/10/2019, 12:11. FINDINGS: Bones: 5 [id number] vertebrae are present. There is trace retrolisthesis of L2 on L3, L3 on L4. Moderate to severe disc space narrowing with sclerotic endplate changes are present at L2-3, minimal throughout the remainder of the lumbar spine. Anterior osteophytes are noted at L3 and L2. Moderate to severe foraminal narrowing is noted L5-S1 and to a lesser degree L4-5. Slight appearance of wedge compression deformity at L1, unchanged. No suspicious bony lesions. Soft tissues: Overlying bowel gas pattern is normal. No suspicious soft tissue calcifications. IMPRESSION: Degenerative changes as above. Dictated by: Theresa Tabares M.D. on 12/20/2020 at 13:15 Approved by: Theresa Tabares M.D. on 12/20/2020 at 13:16
[2020-12-20 12:53] LABS: Add Manual Diff / Slide Review NO; Basophils Absolute Auto 100 /uL (0-100); Basophils Percent Auto 0.8 % (0-2); Eosinophils Absolute Auto 200 /uL (0-450); Eosinophils Percent Auto 3.1 % (2-4); Hematocrit 42.1 % (41-53); Hemoglobin 14.2 g/dL (13.5-17.5); Lymphocytes Absolute Auto 1800 /uL (1100-4500); Lymphocytes Percent Auto 28.7 % (25-40); Mean Corpuscular HGB Conc 33.7 % (30-36); Mean Corpuscular Volume 91.9 fL (80-100); Monocytes Absolute Auto 600 /uL (0-900); Monocytes Percent Auto 9.6 % (3-14); Neutrophils Absolute Auto 3700 /uL (1500-7000); Neutrophils Percent Auto 57.8 % (50-75); Platelet Count 190 X10^3/uL (150-400); Red Blood Cell Count 4.58 X10^6/uL (4.5-5.9); Red Cell Distribution Width 13.7 % (11.6-14.8); White Blood Cell Count 6.4 X10^3/uL (4.5-11.0)
[2020-12-20 13:02] LABS: Alanine Aminotransferase 35 IU/L (<50); Albumin 4.4 g/dL (3.5-5.0); Albumin Globulin Ratio 1.4 (1.0-2.8); Alkaline Phosphatase 59 U/L (38-126); Aspartate Aminotransferase 35 IU/L (17-59); BUN Creatinine Ratio 20.2 (6-22); Bilirubin Total 0.9 mg/dL (0.2-1.3); Blood Urea Nitrogen 17 mg/dL (9-20); Calcium 9.4 mg/dL (8.4-10.2); Carbon Dioxide 23 mmol/L (22-32); Chloride 108 mmol/L (98-107); Estimated Glomerular Filt Rate > 60.0 mL/min (>60); Globulin 3.1 g/dL (1.7-4.1); Glucose 118 mg/dL (70-100); HEMOLYSIS < 15 (0-50); Potassium 4.1 mmol/L (3.4-5.1); Sodium 140 mmol/L (137-145); Total Protein 7.5 g/dL (6.3-8.2)
== END ==
PROVIDERS: PCP Internal Medicine; Referring Provider Physician Assistant; Visit Provider Physician Assistant
DX: M54.5 Low back pain (principal)
CPT/HCPCS: 36415; 72100; 80053; 85025

== ENCOUNTER 2020-12-25 17:45 | Emergency (ER) | payer OTHER, SELFPAY ==
[2020-12-25 17:54] VITALS: BP 180/104; PULSE 62; RESP 14; TEMP 36.6; O2SAT 98; BMI 30.5
--- NOTE | 2020-12-25 18:13 | DI.CT.S_ITS ---
PROCEDURE: CT KIDNEY URETER BLADDER (KUB) INDICATIONS: flank pain TECHNIQUE: Noncontrast 5 mm thick sections acquired from the diaphragms to the symphysis. 5 mm thick coronal and sagittal reformats were then performed. For radiation dose reduction, the following was used: automated exposure control, adjustment of mA and/or kV according to patient size. COMPARISON: None. FINDINGS: ABDOMEN: Lung bases: Normal. Heart: No significant findings. Liver: Normal. Gallbladder: Negative Bile ducts: Normal. Pancreas: Normal. Spleen: Normal. Adrenals: Normal. Kidneys and Ureters: Bilateral nephrolithiasis measuring up to 2 mm on the left and up to 1 mm on the right. There is mild right hydronephrosis and hydroureter related to a 2 mm calculus seen in the distal right ureter at image 81/2. Left ureter is decompressed Stomach and duodenum: Normal. Bowel: Normal. Other: No free fluid or air. Colonic diverticulosis is seen without evidence of acute complication. Appendix is not clearly identified however no suspicious pericecal inflammatory changes are seen. Abdominal nodes: Normal. Aorta and IVC: Normal in size. Ventral wall: Normal. PELVIS: Bladder: No bladder calculi. The bladder is partially decompressed. Inguinal region: Bilateral fat containing inguinal hernia. Pelvic nodes: Normal. Bones: Spondylytic changes and facet arthropathy. No vertebral body compression fracture. IMPRESSION: Mildly obstructive 2 mm calculus involving the distal right ureter. Additional bilateral sub 5 mm nephrolithiasis as above. Dictated by: Prudencio Alaniz M.D. on 12/25/2020 at 19:00 Approved by: Prudencio Alaniz M.D. on 12/25/2020 at 19:12
[2020-12-25 18:19] LABS: Bacteria Urine None Seen
[2020-12-25] MEDS: KETOROLAC 30 MG/ML VIAL 15 MG IV (18:19)
[2020-12-25] MEDS: ONDANSETRON 4 MG/2 ML INJ IV (18:19)
[2020-12-25] MEDS: SODIUM CHLORIDE 0.9% 1,000 ML 1000 ML IV (18:19)
[2020-12-25] MEDS: HYDROMORPHONE 0.5 MG INJ IV (18:19)
[2020-12-25 18:30] LABS: Add Manual Diff / Slide Review NO; Basophils Absolute Auto 0 /uL (0-100); Basophils Percent Auto 0.4 % (0-2); Eosinophils Absolute Auto 100 /uL (0-450); Lymphocytes Absolute Auto 1800 /uL (1100-4500); Lymphocytes Percent Auto 13.5 % (25-40); Mean Corpuscular HGB Conc 33.4 % (30-36); Mean Corpuscular Hemoglobin 31.1 PG (26-34); Mean Corpuscular Volume 92.9 fL (80-100); Monocytes Absolute Auto 1000 /uL (0-900); Monocytes Percent Auto 7.7 % (3-14); Neutrophils Absolute Auto 10400 /uL (1500-7000); Neutrophils Percent Auto 77.4 % (50-75); Platelet Count 195 X10^3/uL (150-400); Red Blood Cell Count 4.52 X10^6/uL (4.5-5.9); Red Cell Distribution Width 13.6 % (11.6-14.8); White Blood Cell Count 13.4 X10^3/uL (4.5-11.0)
[2020-12-25 18:46] LABS: Alanine Aminotransferase 44 IU/L (<50); Albumin 4.5 g/dL (3.5-5.0); Albumin Globulin Ratio 1.4 (1.0-2.8); Alkaline Phosphatase 62 U/L (38-126); Aspartate Aminotransferase 39 IU/L (17-59); BUN Creatinine Ratio 21.7 (6-22); Bilirubin Total 1.1 mg/dL (0.2-1.3); Blood Urea Nitrogen 23 mg/dL (9-20); Calcium 9.6 mg/dL (8.4-10.2); Carbon Dioxide 28 mmol/L (22-32); Chloride 106 mmol/L (98-107); Estimated Glomerular Filt Rate > 60.0 mL/min (>60); Globulin 3.3 g/dL (1.7-4.1); Glucose 105 mg/dL (70-100); HEMOLYSIS < 15 (0-50); Potassium 4.3 mmol/L (3.4-5.1); Sodium 142 mmol/L (137-145); Total Protein 7.8 g/dL (6.3-8.2)
[2020-12-25 18:55] LABS: Amorphous Sediment Urine 1+; Culture Indicated Urine Cult Not Indicated; Mucus Urine 2+ (Negative); RBC Urine 30-100/HPF (0-5/HPF); Squamous Epithelial Cell Urine 0-1 /HPF (0-5/HPF); WBC Urine 1-5/HPF (0-5/HPF)
--- NOTE | 2020-12-25 19:38 | ED_ITS ---
HPI - Back Pain/Injury General Chief Complaint: Back Pain/Injury Stated Complaint: rt sided kidney pain Time Seen by Provider: 12/25/20 18:11 Source: patient Limitations: no limitations History of Present Illness HPI Narrative: 60-year-old gentleman with no significant medical history who initially noticed some left flank pain approximately a week ago that he attributed to mild low back strain. Last night he noticed some mild right flank pain and felt that it again was mild low back strain. Over the course of the day however he has had waxing and waning episodes of pain as severe as 10/10 with the lowest level of pain being in the 3/10 range. He presents to the emergency room after 2-1/2 hours of severe right flank pain noticing mild hematuria, nausea without emesis. He describes no fevers, palpitations, dyspnea, abdominal pain, extremity pain, rashes, headache. Related Data Home Medications Medication Instructions Recorded Confirmed ascorbic acid (vitamin C) 500 mg 500 mg PO DAILY cap 05/09/18 08/21/19 capsule multivitamin 1 tab PO DAILY 05/09/18 08/21/19 Previous Rx's Medication Instructions Recorded cyclobenzaprine 10 mg tablet 10 mg PO BEDTIME #30 tab 12/20/20 oxycodone-acetaminophen 1 tab PO Q6H PRN #14 tab 12/25/20 tamsulosin [Flomax] 0.4 mg PO DAILY #30 cap 12/25/20 Allergies Allergy/AdvReac Type Severity Reaction Status Date / Time No Known Drug Allergies Allergy Verified 12/25/20 17:54 Review of Systems Review of Systems Narrative: Remainder of complete review of systems is otherwise unremarkable except for that included in the HPI. Patient History Medical History (Updated 12/26/20 @ 03:30 by Kaylin Joe MD) Kidney stones Social History Smoking Status: Former smoker Tobacco: How many years used: 15 alcohol intake: current (Occasional) Smoking Status: Former smoker alcohol intake frequency: a few times a week Substance Use Type: does not use Exam Narrative Exam Narrative: General: Healthy appearing, in no acute distress. Able to give a complete and coherent history. Well-nourished well-developed HEENT: Moist mucous membranes, normal sclera with reactive pupils, Neck: No JVD, supple Respiratory: Lungs are clear to auscultation, no wheezing no rales no rhonchi. Full and symmetrical air movement Cardiac: Regular rate and rhythm no murmurs no bruits Abdomen: Soft, nontender, good bowel tones, no rebound or guarding. Right flank pain Skin: Warm and dry, no rashes Neurologic: Grossly neurologically intact with no obvious asymmetries or abnormalities Extremities: No trauma, well perfused Psych: Cooperative, appropriate insight and affect Initial Vital Signs Initial Vital Signs: Vital Signs Temperature 97.8 F 12/25/20 17:54 Pulse Rate 62 12/25/20 17:54 Respiratory Rate 14 12/25/20 17:54 Blood Pressure 180/104 H 12/25/20 17:54 Pulse Oximetry 98 12/25/20 17:54 Course Orders Ordered: Discontinued Medications Hydromorphone HCl (Hydromorphone 0.5 Mg Inj) 0.5 mg IV Q15MIN PRN PRN Reason: Pain, Last Admin: 12/25/20 18:19 Dose: 0.5 mg Documented by: MICHEAL Sodium Chloride (Normal Saline 0.9%) 1,000 mls @ 1,000 mls/hr IV BOLUS ONE Stop: 12/25/20 19:11 Last Admin: 12/25/20 18:19 Dose: 1,000 mls/hr Documented by: MICHEAL Ketorolac Tromethamine (Ketorolac 30 Mg/Ml Vial) 15 mg IV NOW ONE Stop: 12/25/20 18:13 Last Admin: 12/25/20 18:19 Dose: 15 mg Documented by: MICHEAL Ondansetron HCl (Ondansetron 4 Mg/2 Ml Inj) 4 mg IV NOW ONE Stop: 12/25/20 18:13 Last Admin: 12/25/20 18:19 Dose: 4 mg Documented by: MICHEAL Oxycodone/Acetaminophen (Oxycodone/Apap 5/325 Prepack) 1 bottle MISC SEEINSTR ONE Stop: 12/25/20 20:19 Last Admin: 12/25/20 20:33 Dose: 1 bottle Documented by: RONI Tamsulosin HCl (Tamsulosin 0.4 Mg Capsule) 0.4 mg PO NOW ONE Stop: 12/25/20 20:19 Last Admin: 12/25/20 20:33 Dose: 0.4 mg Documented by: RONI Vital Signs Vital signs: Vital Signs - 8 hr 12/25/20 20:34 Temperature 98.8 F Pulse Rate 58 L Respiratory Rate 18 Blood Pressure 149/88 H Pulse Oximetry 98 MDM - Back Pain/Injury Medical Records Attestation: I reviewed the patient's medical records. Lab Data Attestation: I reviewed the patient's lab results. Result diagrams: 12/25/20 18:15 12/25/20 18:15 Labs: Lab Results 12/25/20 12/25/20 12/25/20 Range/Units 18:15 18:15 18:18 WBC 13.4 H (4.5-11.0) X10^3/uL RBC 4.52 (4.5-5.9) X10^6/uL Hgb 14.0 (13.5-17.5) g/dL Hct 42.0 (41-53) % MCV 92.9 (80-100) fL MCH 31.1 (26-34) PG MCHC 33.4 (30-36) % RDW 13.6 (11.6-14.8) % Plt Count 195 (150-400) X10^3/uL Neut % (Auto) 77.4 H (50-75) % Lymph % (Auto) 13.5 L (25-40) % [place] % (Auto) 7.7 (3-14) % Eos % (Auto) 1.0 L (2-4) % Baso % (Auto) 0.4 (0-2) % Neut # (Auto) 98226 H (5986-8099) /uL Lymph # (Auto) 1800 (2467-2113) /uL [place] # (Auto) 1000 H (0-900) /uL Eos # (Auto) 100 (0-450) /uL Baso # (Auto) 0 (0-100) /uL Sodium 142 (137-145) mmol/L Potassium 4.3 (3.4-5.1) mmol/L Chloride 106 (98-107) mmol/L Carbon Dioxide 28 (22-32) mmol/L BUN 23 H (9-20) mg/dL Creatinine 1.06 (0.66-1.25) mg/dL Estimated GFR > 60.0 (>60) mL/min BUN/Creatinine Ratio 21.7 (6-22) Glucose 105 H (70-100) mg/dL Calcium 9.6 (8.4-10.2) mg/dL Total Bilirubin 1.1 (0.2-1.3) mg/dL AST 39 (17-59) IU/L ALT 44 (<50) IU/L Alkaline Phosphatase 62 (38-126) U/L Total Protein 7.8 (6.3-8.2) g/dL Albumin 4.5 (3.5-5.0) g/dL Globulin 3.3 (1.7-4.1) g/dL Albumin/Globulin Ratio 1.4 (1.0-2.8) Urine RBC 30-100/hpf H (0-5/HPF) Urine WBC 1-5/hpf (0-5/HPF) Ur Squamous Epith Cells 0-1 /hpf (0-5/HPF) Amorphous Sediment 1+ Urine Bacteria None seen (None) Urine Mucus 2+ H (Negative) Ur Culture Indicated? Cult not indicated Urine Dip Bedside Urine Glucose Negative Bedside Urine Bilirubin - Negative Bedside Urine Ketone - Negative Urine Specific [place] 1.030 Bedside Urine Occult Blood +++ Bedside Urine pH 6.0 Bedside Urine Protein - Negative Bedside Urine Urobilinogen - Negative Bedside Urine Nitrite - Negative Bedside Urine Leukocytes - Negative Esterase Imaging Data CT KUB: Radiologist's Impression: FINDINGS: ABDOMEN: Lung bases: Normal. Heart: No significant findings. Liver: Normal. Gallbladder: Negative Bile ducts: Normal. Pancreas: Normal. Spleen: Normal. Adrenals: Normal. Kidneys and Ureters: Bilateral nephrolithiasis measuring up to 2 mm on the left and up to 1 mm on the right. There is mild right hydronephrosis and hydroureter related to a 2 mm calculus seen in the distal right ureter at image 81/2. Left ureter is decompressed Stomach and duodenum: Normal. Bowel: Normal. Other: No free fluid or air. Colonic diverticulosis is seen without evidence of acute complication. Appendix is not clearly identified however no suspicious pericecal inflammatory changes are seen. Abdominal nodes: Normal. Aorta and IVC: Normal in size. Ventral wall: Normal. PELVIS: Bladder: No bladder calculi. The bladder is partially decompressed. Inguinal region: Bilateral fat containing inguinal hernia. Pelvic nodes: Normal. Bones: Spondylytic changes and facet arthropathy. No vertebral body compression fracture. IMPRESSION: Mildly obstructive 2 mm calculus involving the distal right ureter. Additional bilateral sub 5 mm nephrolithiasis as above. Dictated by: Prudencio Alaniz M.D. on 12/25/2020 at 19:00 [facility] Narrative Medical decision making narrative: 60-year-old gentleman presents with waxing and waning renal colic type right flank pain. CT scan confirms nephrolithiasis. Pain is significantly improved after fluid and Toradol. Reviewed findings with the patient. He is safe for home discharge. No evidence of appendicitis or acute intra-abdominal abnormalities that would require surgical intervention, no abdominal aneurysms and no evidence of pyelonephritis or infection. Discussed appropriate pain control, straining his urine, Flomax until stones pass and follow-up if symptoms are not improving as expected or stones are not passing. He is safe for home discharge Discharge Plan Departure Patient Disposition: Home Clinical Impression: Renal colic, Kidney stones Instructions: DI for Kidney Stones Activity Restrictions/Additional Instructions: You for coming in today Your pain is from kidney stones. You actually have small kidney stones in both kidneys and on the right side 2 of them are working their way all the way out and this is what is causing her pain. There is no significant obstruction or infection. I anticipate that you will pass the stones without difficulty. To help encourage that, I am going to have you take Flomax/tamsulosin daily until the stones come out. Using 400 mg of ibuprofen (2 stbm-kxx-zohzawu pills) and 1 Tylenol every 6 hours can be very helpful in controlling pain. For severe pain to ibuprofen and 1 Percocet can be helpful. Percocet is a narcotic and will cause constipation. I hope you feel better Prescriptions: New tamsulosin [Flomax] 0.4 mg capsule 0.4 mg PO DAILY Qty: 30 RF: 0 oxycodone-acetaminophen 5-325 mg tablet 1 tab PO Q6H PRN (Reason: pain) Qty: 14 RF: 0 No Action multivitamin tablet 1 tab PO DAILY RF: 0 ascorbic acid (vitamin C) 500 mg capsule 500 mg PO DAILY RF: 0 cyclobenzaprine 10 mg tablet 10 mg PO BEDTIME Qty: 30 RF: 0 Referrals: Mk Murphy MD [Primary Care Provider] -
[2020-12-25] MEDS: OXYCODONE/APAP 5/325 PREPACK 1 BOTTLE MISC (20:33)
[2020-12-25] MEDS: TAMSULOSIN 0.4 MG CAPSULE PO (20:33)
[2020-12-25 20:34] VITALS: BP 149/88; PULSE 58; RESP 18; TEMP 37.1; O2SAT 98
--- NOTE | 2020-12-27 10:08 | PC.NURSE ---
Late Entry- IV fluids discontinued when IV was DC'd prior to discharge at 2030
== END 2020-12-25 20:37 | disposition home or self-care (01) ==
PROVIDERS: Emergency Provider Emergency Medicine; PCP Internal Medicine
DX: N20.0 Calculus of kidney (principal); M54.5 Low back pain
CPT/HCPCS: 74176; 80053; 81003; 81015; 85025; 96361; 96374; 96375; 99284; J1170; J1885; J2405

== ENCOUNTER → 2021-04-29 09:51 | Outpatient (CLI) | payer OTHER, SELFPAY ==
[2021-04-29 10:53] LABS: Add Manual Diff / Slide Review NO; Basophils Absolute Auto 0 /uL (0-100); Basophils Percent Auto 0.6 % (0-2); Eosinophils Absolute Auto 200 /uL (0-450); Eosinophils Percent Auto 3.7 % (2-4); Hematocrit 42.2 % (41-53); Hemoglobin 14.2 g/dL (13.5-17.5); Lymphocytes Absolute Auto 2100 /uL (1100-4500); Lymphocytes Percent Auto 32.4 % (25-40); Mean Corpuscular HGB Conc 33.7 % (30-36); Mean Corpuscular Hemoglobin 31.1 PG (26-34); Mean Corpuscular Volume 92.3 fL (80-100); Monocytes Absolute Auto 700 /uL (0-900); Monocytes Percent Auto 10.8 % (3-14); Neutrophils Absolute Auto 3300 /uL (1500-7000); Neutrophils Percent Auto 52.5 % (50-75); Platelet Count 178 X10^3/uL (150-400); Red Blood Cell Count 4.57 X10^6/uL (4.5-5.9); Red Cell Distribution Width 13.2 % (11.6-14.8); White Blood Cell Count 6.3 X10^3/uL (4.5-11.0)
[2021-04-29 11:07] LABS: Alanine Aminotransferase 33 IU/L (<50); Albumin 4.4 g/dL (3.5-5.0); Albumin Globulin Ratio 1.4 (1.0-2.8); Alkaline Phosphatase 51 U/L (38-126); Aspartate Aminotransferase 28 IU/L (17-59); BUN Creatinine Ratio 18.9 (6-22); Bilirubin Total 1.2 mg/dL (0.2-1.3); Blood Urea Nitrogen 17 mg/dL (9-20); Calcium 9.2 mg/dL (8.4-10.2); Carbon Dioxide 29 mmol/L (22-32); Chloride 103 mmol/L (98-107); Cholesterol 176 mg/dL (140-199); Estimated Glomerular Filt Rate > 60.0 mL/min (>60); Globulin 3.1 g/dL (1.7-4.1); Glucose 89 mg/dL (70-100); HDL Cholesterol 35 mg/dL (40-60); HEMOLYSIS < 15 (0-50); LDL Cholesterol Calculated 126 mg/dL (<100); Potassium 4.3 mmol/L (3.4-5.1); Sodium 137 mmol/L (137-145); Total Protein 7.5 g/dL (6.3-8.2); Triglycerides 77 mg/dL (35-150)
[2021-04-29 11:36] LABS: Prostate Specific Antigen Scrn 0.943 ng/mL (0.1-4.0)
== END ==
PROVIDERS: PCP Internal Medicine; Referring Provider Internal Medicine; Visit Provider Internal Medicine
DX: D72.829 Elevated white blood cell count, unspecified (principal); J45.20 Mild intermittent asthma, uncomplicated; Z13.1 Encounter for screening for diabetes mellitus; Z13.220 Encounter for screening for lipoid disorders; Z12.5 Encounter for screening for malignant neoplasm of prostate
CPT/HCPCS: 36415; 80053; 80061; 85025; G0103

== ENCOUNTER → 2022-06-02 14:44 | Outpatient (CLI) | payer OTHER, SELFPAY ==
--- NOTE | 2022-06-02 14:45 | DI.CT.S_ITS ---
PROCEDURE: CT ABDOMEN PELVIS WO CON INDICATIONS: Kidney stones TECHNIQUE: After the administration of oral contrast, 5 mm thick sections acquired from the diaphragms to the symphysis. 5 mm coronal and sagittal reformats were performed. For radiation dose reduction, the following was used: automated exposure control, adjustment of mA and/or kV according to patient size. COMPARISON: [facility], CT, CT KIDNEY URETER BLADDER (KUB), 12/25/2020, 18:39. FINDINGS: Image quality: Excellent. ABDOMEN: Lung bases: Lung bases are clear. Heart size is normal. Solid organs: Liver is normal in size. Gallbladder normal. Pancreas is normal in size. Spleen is normal in size. No adrenal nodules. Nonobstructing 2 millimeter right lower pole calculus (series 2, image 45). No additional urinary tract calculus. Kidneys unremarkable. Peritoneum and bowel: Bowel loops demonstrate normal wall thickness and caliber. No free fluid or air. Sigmoid diverticulosis. Nodes and vessels: No retroperitoneal or mesenteric adenopathy by size criteria. Aorta and inferior vena cava are normal in size. Miscellaneous: No ventral hernias. PELVIS: Genitourinary: Bladder wall thickness is normal. Miscellaneous: No inguinal hernias or adenopathy. Bones: No suspicious bony lesions. No vertebral body compression fractures. IMPRESSION: Nonobstructing 2 millimeter right lower pole renal calculus. No additional urinary tract abnormality identified. Dictated by: Mike Dewitt M.D. on 06/03/2022 at 8:13 Approved by: Mike Dewitt M.D. on 06/03/2022 at 8:14
== END ==
PROVIDERS: PCP Internal Medicine; Referring Provider Urology; Visit Provider Urology
DX: N20.0 Calculus of kidney (principal)
CPT/HCPCS: 74176

== ENCOUNTER → 2022-06-25 11:13 | Outpatient (CLI) | payer OTHER, SELFPAY ==
[2022-06-25 12:40] LABS: Calcium 9.5 mg/dL (8.4-10.2); Uric Acid 5.1 mg/dL (3.5-8.5)
[2022-06-27 06:40] LABS: Calcium 9.5 mg/dL (8.6-10.2); Parathyroid Hormone, Intact 33 pg/mL (15-65)
== END ==
LOC: RAD 11:14 → LAB 11:14
PROVIDERS: PCP Internal Medicine; Referring Provider Urology; Visit Provider Urology
DX: N20.0 Calculus of kidney (principal); R39.9 Unspecified symptoms and signs involving the genitourinary system
CPT/HCPCS: 36415; 82310; 83970; 84550

== ENCOUNTER → 2022-07-22 09:11 | Outpatient (CLI) | payer OTHER, SELFPAY ==
[2022-07-22 10:44] LABS: COVID19 -Nasal RAPID Negative (Negative)
== END ==
PROVIDERS: PCP Internal Medicine; Referring Provider Surgery; Visit Provider Surgery
DX: Z01.812 Encounter for preprocedural laboratory examination (principal); Z20.822 Contact with and (suspected) exposure to COVID-19
CPT/HCPCS: 87635; C9803

== ENCOUNTER 2022-07-23 12:27 | Day surgery (SDC) | payer OTHER, SELFPAY ==
[2022-07-23] VITALS (8 sets, daily range): BP systolic 105–150; BP diastolic 71–99; PULSE 58–75; RESP 12–20; TEMP 36.1–36.5; O2SAT 95–98; BMI 27.6
[2022-07-23] MEDS: LACTATED RINGERS 1,000 ML 150 ML IV (14:30)
--- NOTE | 2022-07-23 14:46 | P.HP_ITS ---
History of Present Illness History of Present Illness Date Patient Seen: 07/23/22 Time Patient Seen: 14:47 Chief complaint: Colonoscopy Narrative: Anmol is a 62-year-old man is here for colonoscopy. His last colonoscopy was over 10 years ago and no polyps were found. He has no known family history of colon cancer. Patient History Medical History (Updated 07/23/22 @ 14:47 by Aamir Reed MD) Acne (~1974) Ankle pain Asthma, mild intermittent Calculus of kidney Chicken pox (~1964) Foot pain (~2012) Fractures (~1968) Hearing loss (~2014) Kidney stones Lower urinary tract symptoms Shoulder pain (~2009) Tinnitus (~2014) Surgical History Anesthesia Hx of circumcision Hx of vasectomy S/P LASIK (laser assisted in situ keratomileusis) (~2002) S/P shoulder surgery (~2010) Family & Social History Family History Father Lung cancer Cancer Gout Mother Hypertension Multiple kidney stones Hearing impairment Social History: household members spouse Tobacco & Substance use: Smoking Status Former smoker alcohol intake current alcohol intake frequency a few times a week Substance Use Type does not use Meds Home Medications and Allergies Home Medications Medication Instructions Recorded Confirmed Type ascorbic acid (vitamin C) 500 mg 500 mg PO DAILY 05/09/18 07/23/22 History capsule multivitamin 1 tab PO DAILY 05/09/18 07/23/22 History Liquid Turmeric 1 tsp PO DAILY 02/07/21 07/23/22 History glucosam 750 mg-chondroi 100 1 tab PO DAILY 02/07/21 07/23/22 History mg-hyalur 1.65 mg-CF borate 108 mg tablet ([employer]) Allergies Allergy/AdvReac Type Severity Reaction Status Date / Time No Known Drug Allergies Allergy Verified 07/23/22 14:19 Exam Vital Signs (past 8 hours): - 07/23/22 14:21 Temperature 97.7 F Pulse Rate 66 Respiratory Rate 16 Blood Pressure 150/99 H Pulse Oximetry 98 Oxygen Delivery Method Room Air Oxygen Delivery Method Room Air Const General: healthy appearing Assessment & Plan Assessment and plan (1) Colon cancer screening: Status: Acute Plan 62-year-old man who is here for a colonoscopy for colon cancer screening. We reviewed the risks and benefits and he would like to proceed. Time Spent With Patient Critical Care time: I spent a total of [] minutes of critical care time on this patient's care today; this time is exclusive of procedural time.
--- NOTE | 2022-07-23 15:41 | PM.OP.COLON ---
Operative Date/Time/Diagnoses Date of procedure: 07/23/22 Time of procedure: 15:41 Pre-op diagnosis: Colon cancer screening Post-op diagnosis: same Procedure & Clinicians Study performed: Colonoscopy Same procedure as scheduled: Yes Surgeon: Aamir Reed Procedure Notes Procedure in detail: Surgeon: Aamir Reed MD Anesthesia: Dr. Bailey Procedure: The patient was brought to the endoscopy suite, placed in left lateral decubitus position. The patient was connected to monitoring devices. A time-out was performed. Sedation was administered. Once the patient was adequately sedated, a digital rectal exam was performed and was normal. The scope was then inserted and advanced to the cecum where the appendiceal orifice was identified and photographed. The scope was then slowly withdrawn over greater than 6 minutes. The mucosa was thoroughly inspected. No polyp were noted. There was some moderate sigmoid diverticulosis. The scope was retroflexed in the rectum. No abnormalities were noted besides some mild internal hemorrhoids. The scope was straightened and removed. The patient was awakened and brought to recovery. Scope withdrawal time: 6 minutes and 30 seconds Sedation time: 9 minutes EBL: 0 Findings: Moderate sigmoid colon diverticulosis mild internal hemorrhoids Post-procedure Recommendations: Colonoscopy in 10 years Disposition: PACU
== END 2022-07-23 16:48 | disposition home or self-care (01) ==
PROVIDERS: PCP Internal Medicine; Referring Provider Surgery; Visit Provider Surgery
PROC: 0DJD8ZZ Inspection of Lower Intestinal Tract, Via Natural or Artificial Opening Endoscopic (ICD-10-PCS; CPT 45378; principal; 2022-07-23 13:30)
DX: Z12.11 Encounter for screening for malignant neoplasm of colon (principal); K57.30 Diverticulosis of large intestine without perforation or abscess without bleeding; K64.8 Other hemorrhoids
CPT/HCPCS: 45378

== ENCOUNTER → 2022-10-26 12:28 | Outpatient (CLI) | payer OTHER, SELFPAY ==
[2022-10-26 13:30] LABS: Phosphorous 3.9 mg/dL (2.3-3.7)
[2022-10-26 13:45] LABS: Vitamin D 25 Hydroxy (D3) 40.8 ng/mL (30.0-100.0)
== END ==
PROVIDERS: PCP Internal Medicine; Referring Provider Urology; Visit Provider Urology
DX: R82.994 Hypercalciuria (principal); E83.39 Other disorders of phosphorus metabolism
CPT/HCPCS: 36415; 82306; 84100

== ENCOUNTER → 2023-01-29 09:56 | Outpatient (CLI) | payer OTHER, SELFPAY ==
--- NOTE | 2023-01-29 09:57 | DI.RAD.S_ITS ---
PROCEDURE: XR KUB INDICATIONS: calculus of kidney TECHNIQUE: One view of the abdomen acquired. COMPARISON: [facility], CT, CT ABDOMEN PELVIS WO CON, 06/02/2022, 14:50. FINDINGS: Surgical changes and devices: None. Bowel: Bowel gas pattern is normal. Prominent stool is seen in the right colon. Soft tissues: Possible 2 mm calculus projecting over the inferior pole of the right kidney corresponding to the previously seen renal calculus. Visualized solid organ contours appear normal in size. Bones: No suspicious bony lesions. IMPRESSION: Questionable 2 mm calculus at the inferior pole of the right kidney corresponding to the previously seen right renal calculus on CT from 06/02/2022. Prominent right colonic stool. Approved by: Kendall Murray M.D. on 01/29/2023 at 12:53
== END ==
PROVIDERS: PCP Internal Medicine; Referring Provider Urology; Visit Provider Urology
DX: N20.0 Calculus of kidney (principal)
CPT/HCPCS: 74018

== ENCOUNTER → 2023-02-11 16:54 | Outpatient (CLI) | payer OTHER, SELFPAY | PROVIDERS: PCP Internal Medicine; Visit Provider Urology | DX: N20.0 Calculus of kidney (principal); R39.9 Unspecified symptoms and signs involving the genitourinary system; N40.0 Benign prostatic hyperplasia without lower urinary tract symptoms; R82.994 Hypercalciuria; R82.992 Hyperoxaluria | CPT/HCPCS: 81002; 87086 ==

== ENCOUNTER → 2023-11-02 10:21 | Outpatient (CLI) | payer OTHER, SELFPAY ==
[2023-11-04 08:50] LABS: Calcium 9.3 mg/dL (8.6-10.2); Parathyroid Hormone, Intact 44 pg/mL (15-65)
== END ==
LOC: LAB 10:24
PROVIDERS: PCP Internal Medicine; Referring Provider Urology; Visit Provider Urology
DX: R82.994 Hypercalciuria (principal)
CPT/HCPCS: 36415; 82310; 83970

== ENCOUNTER → 2023-11-16 13:03 | Outpatient (CLI) | payer OTHER, SELFPAY ==
[2023-11-16 13:53] LABS: Hemoglobin 15.5 g/dL (13.5-17.5)
[2023-11-16 15:31] LABS: BUN Creatinine Ratio 13.5 (6-22); Blood Urea Nitrogen 12 mg/dL (9-20); Calcium 9.5 mg/dL (8.4-10.2); Carbon Dioxide 28 mmol/L (22-32); Chloride 105 mmol/L (98-107); Estimated Glomerular Filt Rate > 60 mL/min (>60); Glucose 162 mg/dL (80-110); HEMOLYSIS < 15 (0-50); Potassium 3.9 mmol/L (3.4-5.1); Sodium 139 mmol/L (137-145)
[2023-11-16 15:35] LABS: Creatinine Urine Random 31.6 mg/dL; Protein (Total) Urine Random 13 mg/dL (0-12); Protein Creatinine Ratio Urine 0.41 GRAM/24H
== END ==
PROVIDERS: PCP Internal Medicine; Referring Provider Student in an Organized Health Care Education/Training Program; Visit Provider Student in an Organized Health Care Education/Training Program
DX: N05.9 Unspecified nephritic syndrome with unspecified morphologic changes (principal); D64.9 Anemia, unspecified; R80.9 Proteinuria, unspecified
CPT/HCPCS: 36415; 80048; 82570; 84156; 85014; 85018

== ENCOUNTER → 2023-12-01 08:21 | Outpatient (CLI) | payer OTHER, SELFPAY ==
--- NOTE | 2023-12-01 08:23 | DI.RAD.S_ITS ---
PROCEDURE: XR KUB INDICATIONS: Calculus of kidney TECHNIQUE: One view of the abdomen acquired. COMPARISON: [facility], CT, CT ABDOMEN PELVIS WO CON, 06/02/2022, 14:50. [facility], CR, XR KUB, 01/29/2023, 10:09. FINDINGS: Surgical changes and devices: None. Bowel: Scattered small bowel and colonic gas. No dilated loops of bowel seen. Soft tissues: Small calculus at the inferior pole of the right kidney, appears unchanged. No suspicious abdominal calcifications. Visualized solid organ contours appear normal in size. Bones: No suspicious bony lesions. IMPRESSION: Small nonobstructing calculus at the inferior pole the right kidney appears unchanged. Dictated by: Carlos Li M.D. on 12/01/2023 at 11:28 Approved by: Carlos Li M.D. on 12/01/2023 at 11:29
== END ==
LOC: RAD 08:22
PROVIDERS: PCP Internal Medicine; Referring Provider Urology; Visit Provider Urology
DX: N20.0 Calculus of kidney (principal)
CPT/HCPCS: 74018

== ENCOUNTER → 2024-01-05 13:33 | Outpatient (CLI) | payer OTHER, SELFPAY ==
[2024-01-05 14:33] LABS: BUN Creatinine Ratio 13.5 (6-22); Blood Urea Nitrogen 12 mg/dL (9-20); Calcium 9.1 mg/dL (8.4-10.2); Carbon Dioxide 28 mmol/L (22-32); Chloride 107 mmol/L (98-107); Estimated Glomerular Filt Rate > 60 mL/min (>60); Glucose 92 mg/dL (80-110); HEMOLYSIS < 15 (0-50); Potassium 4.2 mmol/L (3.4-5.1); Sodium 140 mmol/L (137-145)
[2024-01-05 16:30] LABS: Creatinine Urine Random 81.67 mg/dL; Protein (Total) Urine Random 6 mg/dL (0-12); Protein Creatinine Ratio Urine 0.07 GRAM/24H
== END ==
PROVIDERS: PCP Internal Medicine; Referring Provider Student in an Organized Health Care Education/Training Program; Visit Provider Student in an Organized Health Care Education/Training Program
DX: N05.9 Unspecified nephritic syndrome with unspecified morphologic changes (principal); R80.9 Proteinuria, unspecified
CPT/HCPCS: 36415; 80048; 82570; 84156

== ENCOUNTER → 2024-03-21 15:52 | Outpatient (CLI) | payer OTHER, SELFPAY ==
--- NOTE | 2024-03-21 15:53 | DI.RAD.S_ITS ---
PROCEDURE: XR KUB INDICATIONS: Kidney Stones TECHNIQUE: 2 views of the abdomen acquired. COMPARISON: [facility], CR, XR KUB, 12/01/2023, 8:24. FINDINGS: Surgical changes and devices: None. Bowel: Bowel gas pattern is normal. Soft tissues: Small calculus in the inferior pole of the right kidney is unchanged. No new renal calculus. Visualized solid organ contours appear normal in size. Bones: No suspicious bony lesions. IMPRESSION: Small calculus in the inferior pole of the right kidney is unchanged. No new renal calculus. Dictated by: Aung Mauricio M.D. on 03/22/2024 at 9:10 Approved by: Aung Mauricio M.D. on 03/22/2024 at 9:14
== END ==
PROVIDERS: PCP Internal Medicine; Referring Provider Urology; Visit Provider Urology
DX: N20.0 Calculus of kidney (principal); R82.994 Hypercalciuria
CPT/HCPCS: 74018

== ENCOUNTER → 2024-10-18 10:00 | Outpatient (CLI) | payer OTHER, SELFPAY ==
--- NOTE | 2024-10-18 10:02 | DI.RAD.S_ITS ---
PROCEDURE: XR KUB INDICATIONS: Follow-up right lower pole kidney stone TECHNIQUE: One view of the abdomen acquired. COMPARISON: [facility], , XR KUB, 03/21/2024, 15:11. FINDINGS: Surgical changes and devices: None. Bowel: Bowel gas pattern is normal. Soft tissues: No suspicious abdominal calcifications. Visualized solid organ contours appear normal in size. Bones: No suspicious bony lesions. IMPRESSION: No acute abnormality. Dictated by: Chavo Delvalle M.D. on 10/18/2024 at 18:21 Approved by: Chavo Delvalle M.D. on 10/18/2024 at 18:23
== END ==
LOC: RAD 10:01
PROVIDERS: PCP Internal Medicine; Referring Provider Urology; Visit Provider Urology
DX: N20.0 Calculus of kidney (principal)
CPT/HCPCS: 74018

== ENCOUNTER → 2025-04-18 11:43 | Outpatient (CLI) | payer OTHER, SELFPAY ==
--- NOTE | 2025-04-18 11:44 | DI.RAD.S_ITS ---
PROCEDURE: XR KUB INDICATIONS: Right lower pole renal calculus TECHNIQUE: One view of the abdomen acquired. COMPARISON: [facility], CR, XR KUB, 12/01/2023, 8:24. [facility], CR, XR KUB, 10/18/2024, 9:58. [facility], CR, XR KUB, 03/21/2024, 15:11. FINDINGS: Surgical changes and devices: None. Bowel: Bowel gas pattern is normal. Soft tissues: Stable position of a punctate right lower pole calculus.. Visualized solid organ contours appear normal in size. Bones: No suspicious bony lesions. IMPRESSION: Stable punctate right lower pole calculus. Dictated by: Jayy France M.D. on 04/18/2025 at 13:23 Approved by: Jayy France M.D. on 04/18/2025 at 13:24
== END ==
PROVIDERS: PCP Internal Medicine; Referring Provider Urology; Visit Provider Urology
DX: N20.0 Calculus of kidney (principal)
CPT/HCPCS: 74018

== ENCOUNTER → 2025-05-01 09:23 | Outpatient (CLI) | payer OTHER, SELFPAY ==
--- NOTE | 2025-05-01 09:24 | DI.RAD.S_ITS ---
PROCEDURE: XR ACUTE ABDOMEN SERIES INDICATIONS: abd pain TECHNIQUE: One view chest and two views of the abdomen were acquired. COMPARISON: None. FINDINGS: Surgical changes and devices: None. Chest: Lungs are clear. Heart size is normal. No pleural effusions. No pneumoperitoneum. Abdomen: Bowel gas pattern is normal. No suspicious calcifications. Visualized solid organ contours appear normal. No pneumoperitoneum. Bones: No suspicious bony lesions. IMPRESSION: No acute abnormality. Dictated by: Jayy France M.D. on 05/01/2025 at 10:31 Approved by: Jayy France M.D. on 05/01/2025 at 10:31
[2025-05-01 10:01] LABS: Add Manual Diff / Slide Review NO; Hematocrit 43.1 % (41-53); Hemoglobin 15.0 g/dL (13.5-17.5); Lymphocytes Absolute Auto 1700 /uL (1100-4500); Mean Corpuscular HGB Conc 34.7 % (30-36); Mean Corpuscular Hemoglobin 31.6 PG (26-34); Mean Corpuscular Volume 91.1 fL (80-100); Platelet Count 200 X10^3/uL (150-400)
[2025-05-01 10:31] LABS: Alanine Aminotransferase 28 IU/L (<50); Albumin 4.3 g/dL (3.5-5.0); Albumin Globulin Ratio 1.4 (1.0-2.8); Alkaline Phosphatase 58 U/L (38-126); Amylase 52 U/L (30-110); Blood Urea Nitrogen 12 mg/dL (9-20); Calcium 9.2 mg/dL (8.4-10.2); Carbon Dioxide 27 mmol/L (22-32); Chloride 104 mmol/L (98-107); Estimated Glomerular Filt Rate > 60 mL/min (>60); Globulin 3.0 g/dL (1.7-4.1); Glucose 110 mg/dL (70-99); HEMOLYSIS < 15 (0-50); Lipase 64 U/L (23-300); Potassium 4.3 mmol/L (3.4-5.1); Sodium 140 mmol/L (137-145); Total Protein 7.3 g/dL (6.3-8.2)
== END ==
PROVIDERS: PCP Internal Medicine; Referring Provider Internal Medicine; Visit Provider Internal Medicine
DX: R10.9 Unspecified abdominal pain (principal)
CPT/HCPCS: 36415; 74022; 80053; 82150; 83690; 85025

== ENCOUNTER → 2025-05-03 09:18 | Outpatient (CLI) | payer OTHER, SELFPAY ==
--- NOTE | 2025-05-03 09:19 | DI.CT.S_ITS ---
PROCEDURE: CT ABDOMEN PELVIS W CON INDICATIONS: mid abd pain TECHNIQUE: Oral contrast was given in this patient. After the administration of intravenous contrast, axial sections acquired from the lung bases to the pubic symphysis. Coronal and sagittal reformats were performed. For radiation dose reduction, the following was used: automated exposure control, adjustment of mA and/or kV according to patient size. COMPARISON: [facility], CT, CT ABDOMEN PELVIS WO CON, 06/02/2022, 14:50. [facility], CT, CT KIDNEY URETER BLADDER (KUB), 12/25/2020, 18:39. [facility], CR, XR ACUTE ABDOMEN SERIES, 05/01/2025, 9:42. FINDINGS: Image quality: Diagnostic. Lower Chest: No significant findings. ABDOMEN: Liver: No solid mass. Diffuse fatty liver infiltration is noted. Gallbladder: No radiopaque gallstones or wall thickening. Biliary ducts: No biliary dilation. Pancreas: No ductal dilation. Spleen: Size is within normal limits. Adrenal Glands: No adrenal nodules. Kidneys and Ureters: No hydronephrosis. No solid mass. No complex renal cystic lesion which requires follow up. Bowel and peritoneum: There is focal wall thickening seen involving the sigmoid colon, with surrounding inflammatory change. Diverticula formation can be seen within this region. No free air or significant free fluid can be seen. No loculated abscess collection can be seen. The more proximal colon is within normal limits. No dilated loops of small bowel are seen. A normal appendix is noted. Ventral Wall: No significant ventral hernia. Abdominal Nodes: No retroperitoneal or mesenteric adenopathy by size criteria. Vessels: Aorta and inferior vena cava are normal in size. PELVIS: Pelvic Organs: Unremarkable. Bladder: No bladder wall thickening, accounting for underdistention. Pelvic Nodes: No enlarged lymph nodes. Miscellaneous: No inguinal hernias are seen. Bones: No aggressive osseous abnormality. Focal L2-L3 degenerative change is seen. IMPRESSION: There is sigmoid diverticulitis, without leo findings of perforation or abscess. When clinically appropriate (following adequate treatment of the patient's current clinical episode) a colonoscopy is recommended for further evaluation for a potential underlying mass (if not already recently done). Additional findings: Fatty liver infiltration Focal L2-L3 degenerative change Dictated by: Sourav Torres M.D. on 05/03/2025 at 10:05 Approved by: Sourav Torres M.D. on 05/03/2025 at 10:08
== END ==
LOC: CT 09:19
PROVIDERS: PCP Internal Medicine; Referring Provider Internal Medicine; Visit Provider Internal Medicine
DX: K57.32 Diverticulitis of large intestine without perforation or abscess without bleeding (principal); R10.9 Unspecified abdominal pain
CPT/HCPCS: 74177; Q9967